=== PATIENT | female | born 1995 | race Caucasian/White ===

== ENCOUNTER 2017-10-11 20:07 | Emergency (ER) | payer OTHER ==
[2017-10-11] MEDS: DEXAMETHASONE SOD PHOS 20 MG/5 ML VIAL. IM ×2 (21:29)
[2017-10-11] MEDS: FAMOTIDINE 20 MG TABLET. PO ×2 (21:29)
[2017-10-11] MEDS: hydrOXYzine PAMOATE 25 MG CAPSULE PO ×2 (21:30)
== END 2017-10-11 21:47 | disposition home or self-care (01) ==
LOC: ER 20:07
DX: L25.9 Unspecified contact dermatitis, unspecified cause (principal); Z88.0 Allergy status to penicillin; Z88.1 Allergy status to other antibiotic agents
CPT/HCPCS: 96372; 99283-25; J1100

== ENCOUNTER 2019-12-23 17:23 | Emergency (ER) | payer OTHER ==
[~2019-12-23] VITALS: Ht 162.6 cm; Wt 65.0 kg
[~2019-12-23 17:23] MED LIST: FAMO20TA5 PO; HYDR25TA PO; METH4TAB2 PO; NAPR-683 PO
[2019-12-23] MEDS: IV NORMAL SALINE 1000ML BAG 1,000 ML IV ONE (18:00)
--- NOTE | 2019-12-23 18:05 | PHYS DOC ---
Past Medical History Past Medical History: No Pertinent History Past Surgical History: Tonsillectomy Additional Past Surgical Histo: mass removed next to bladder, Smoking Status: Never Smoker Alcohol Use: None Drug Use: None Adult General Chief Complaint Chief Complaint: FEVER HPI HPI Patient is a 24 year old female who presents with fever that is been ongoing since yesterday with cough, fever, body aches, and fatigue. Denies loss of appetite, denies runny nose, denies diarrhea. The patient states that she is also having left lower quad abdominal pain after she took a medical pill last Saturday. The patient reports her fevers been 102.8. Rates her pain 6 out of 10 in severity and sharp. Heart rate on arrival to the ER was 131. Complete ROS were reviewed and found to be within normal limits, except as documented in the HPI Current Medications Current Medications Current Medications Medications (Trade) Dose Ordered Sig/Cameron Start Time Stop Time Status Last Admin Dose Admin Acetaminophen (Tylenol) 1,000 mg 1X ONCE 12/23/19 21:45 12/23/19 21:46 Ibuprofen (Motrin) 200 mg STK-MED ONCE 12/23/19 21:34 12/23/19 21:34 DC Ondansetron HCl (Zofran) 4 mg STK-MED ONCE 12/23/19 21:34 12/23/19 21:34 DC Sodium Chloride 1,000 ml @ 1,000 mls/hr 1X ONCE 12/23/19 18:00 12/23/19 19:01 DC 12/23/19 18:00 1,000 MLS/HR Allergies Allergies Allergies Coded Allergies Type Severity Reaction Last Updated Verified Penicillins Allergy Intermediate hives 10/11/17 Yes amoxicillin Allergy Intermediate hives 10/11/17 Yes Physical Exam Physical Exam Constitutional: Well developed, well nourished, no acute distress, non-toxic appearance. [] HENT: Normocephalic, atraumatic, bilateral external ears normal, oropharynx moist, no oral exudates, nose normal. [] Abdomen: soft, LLQ abdominal pain. Neurologic: Alert and oriented X 3, normal motor function, normal sensory function, no focal deficits noted. [] Psychologic: Affect normal, judgement normal, mood normal. [] Current Patient Data Vital Signs Vital Signs Date Time Temp Pulse Resp B/P (MAP) Pulse Ox O2 Delivery O2 Flow Rate FiO2 12/23/19 21:20 102.4 104 20 117/58 (77) 98 102.4 12/23/19 18:32 Room Air Lab Values Laboratory Tests Test 12/23/19 18:00 12/23/19 18:19 12/23/19 19:00 Urine Collection Type Unknown Urine Color Yellow Urine Clarity Clear Urine pH 7.0 (<5.0-8.0) Urine Specific [place] 1.020 (1.000-1.030) Urine Protein Negative mg/dL (NEG-TRACE) Urine Glucose (UA) Negative mg/dL (NEG) Urine Ketones (Stick) Negative mg/dL (NEG) Urine Blood Moderate (NEG) Urine Nitrite Negative (NEG) Urine Bilirubin Negative (NEG) Urine Urobilinogen Dipstick 0.2 mg/dL (0.2 mg/dL) Urine Leukocyte Esterase Negative (NEG) Urine RBC 11-20 /HPF (0-2) Urine WBC Rare /HPF (0-4) Urine Squamous Epithelial Cells Mod /LPF Urine Bacteria Few /HPF (0-FEW) Urine Mucus Marked /LPF POC Urine HCG, Qualitative Hcg positive (Negative) White Blood Count 10.2 x10^3/uL (4.0-11.0) Red Blood Count 3.95 x10^6/uL (3.50-5.40) Hemoglobin 12.0 g/dL (12.0-15.5) Hematocrit 35.0 % (36.0-47.0) L Mean Corpuscular Volume 89 fL (79-100) Mean Corpuscular Hemoglobin 30 pg (25-35) Mean Corpuscular Hemoglobin Concent 34 g/dL (31-37) Red Cell Distribution Width 14.1 % (11.5-14.5) Platelet Count 180 x10^3/uL (140-400) Neutrophils (%) (Auto) 86 % (31-73) H Lymphocytes (%) (Auto) 7 % (24-48) L Monocytes (%) (Auto) 7 % (0-9) Eosinophils (%) (Auto) 0 % (0-3) Basophils (%) (Auto) 0 % (0-3) Neutrophils # (Auto) 8.7 x10^3/uL (1.8-7.7) H Lymphocytes # (Auto) 0.7 x10^3/uL (1.0-4.8) L Monocytes # (Auto) 0.7 x10^3/uL (0.0-1.1) Eosinophils # (Auto) 0.0 x10^3/uL (0.0-0.7) Basophils # (Auto) 0.0 x10^3/uL (0.0-0.2) Segmented Neutrophils % 81 % (35-66) H Band Neutrophils % 3 % (0-9) Lymphocytes % 11 % (24-48) L Monocytes % 5 % (0-10) Platelet Estimate Adequate (ADEQUATE) Maternal Serum HCG Beta Subunit 6123 mIU/mL (0-5) H Sodium Level 136 mmol/L (136-145) Potassium Level 3.6 mmol/L (3.5-5.1) Chloride Level 101 mmol/L (98-107) Carbon Dioxide Level 27 mmol/L (21-32) Anion Gap 8 (6-14) Blood Urea Nitrogen 8 mg/dL (7-20) Creatinine 0.8 mg/dL (0.6-1.0) Estimated GFR (Cockcroft-Gault) 88.9 BUN/Creatinine Ratio 10 (6-20) Glucose Level 87 mg/dL (70-99) Lactic Acid Level 0.7 mmol/L (0.4-2.0) Calcium Level 8.4 mg/dL (8.5-10.1) L Total Bilirubin 0.5 mg/dL (0.2-1.0) Aspartate Amino Transferase (AST) 13 U/L (15-37) L Alanine Aminotransferase (ALT) 13 U/L (14-59) L Alkaline Phosphatase 54 U/L (46-116) Total Protein 6.8 g/dL (6.4-8.2) Albumin 3.7 g/dL (3.4-5.0) Albumin/Globulin Ratio 1.2 (1.0-1.7) Laboratory Tests 12/23/19 19:00 Laboratory Tests 12/23/19 19:00 EKG EKG [] Radiology/Procedures Radiology/Procedures [][facility] [address] [place] [address] IMAGING REPORT Signed PATIENT: MONO EMMANUEL Jesica ACCOUNT: [id number] : 1995 LOCATION: ER AGE: 24 SEX: F EXAM STATUS: REG ER ORD. PHYSICIAN: JESUS WHITESIDE APRN REASON: cough PROCEDURE: PORTABLE CHEST 1V Single view chest dated 12/23/2019: No comparison available. Clinical Indication: Cough. Findings: Single upright portable exam of the chest was performed. Heart size and mediastinal contours are within normal limits given technique. The lungs are clear without evidence of focal consolidation. Vascular interstitium is within normal limits. Impression:: No acute radiographic abnormality. Electronically signed by: Jesus Brito MD (12/23/2019 6:39 PM) [id number] DICTATED and SIGNED BY: JESUS BRITO MD DATE: 12/23/19 183 Course & Med Decision Making Course & Med Decision Making Pertinent Labs and Imaging studies reviewed. (See chart for details) We will get chest x-ray, labs, lactic acid, ultrasound. Patient is a fever after a medical pill so I am concerned that she might have retained products. The patient also has a fever and cough with no exhalation for the cough and I am concerned that she could also have coronavirus. Heart rate has improved down to 98. Ultrasound shows retained products. I discussed the case with Dr. Davis. Dr. Davis suggest put on doxycycline and giving her pain medicine. She was then see if she passes overnight and have her call her office in the morning. If the product do not come out she will then perform a D&C. Discussed this plan with the patient who is agreeable to the plan. Dragon Disclaimer Dragon Disclaimer This electronic medical record was generated, in whole or in part, using a voice recognition dictation system. Departure Departure Impression: Primary Impression: Retained products of conception following Disposition: HOME, SELF-CARE Condition: STABLE Referrals: MARY IGNACIO MD (PCP) BENJAMIN EUBANKS MD Additional Instructions: Thank you for visiting [facility]. We appreciate you trusting us with your care. If any additional problems come up don't hesitate to return to visit us. Please follow up with your primary care provider so they can plan additional care if needed and know about the problem that you had. If symptoms worsen come back to the Emergency Department. Any concerning symptoms that start such as chest pain, shortness of air, weakness or numbness on one side of the body, running high fevers or any other concerning symptoms return to the ER. Please follow-up with Dr. Andre per contact information on the discharge instructions as we discussed. Scripts Hydrocodone/Apap 5-325 (NORCO 5-325 TABLET) 1 Each Tablet 1 TAB PO PRN Q6HRS PRN for PAIN for 3 Days, #10 TAB 0 Refills Prov: JESUS WHITESIDE APRN 12/23/19 Doxycycline Hyclate (DOXYCYCLINE HYCLATE) 100 Mg Capsule 1 CAP PO BID for 7 Days, #14 CAP Prov: JESUS WHITESIDE APRN 12/23/19 JSEUS WHITESIDE APRN Dec 23, 2019 18:05
[2019-12-23 18:25] LABS: BILIRUBIN,URINE NEGATIVE (NEG); CLARITY,URINE CLEAR; COLOR,URINE YELLOW; NITRITE,URINE NEGATIVE (NEG); PROTEIN,URINE NEGATIVE (NEG-TRACE); UROBILINOGEN,URINE 0.2 mg/dL (0.2 mg/dL)
[2019-12-23 18:33] LABS: BACTERIA,URINE FEW /HPF (0-FEW); SQUAMOUS EPITHELIAL CELL,UR MOD /LPF; WBC,URINE RARE /HPF (0-4)
--- NOTE | 2019-12-23 18:42 | RAD ---
Single view chest dated 12/23/2019: No comparison available. Clinical Indication: Cough. Findings: Single upright portable exam of the chest was performed. Heart size and mediastinal contours are within normal limits given technique. The lungs are clear without evidence of focal consolidation. Vascular interstitium is within normal limits. Impression:: No acute radiographic abnormality. Electronically signed by: Jesus Brito MD (12/23/2019 6:39 PM) [id number]
[2019-12-23 19:15] LABS: BASO % 0 % (0-3); EOS % 0 % (0-3); LYMPH # 0.7 x10^3/uL (1.0-4.8); LYMPH % 7 % (24-48); MEAN CORPUSCULAR HEMOGLOBIN 30 pg (25-35); MEAN CORPUSCULAR HGB CONC 34 g/dL (31-37); MEAN CORPUSCULAR VOLUME 89 fL (79-100); MONO # 0.7 x10^3/uL (0.0-1.1); MONO % 7 % (0-9); NEUT # 8.7 x10^3/uL (1.8-7.7); NEUT % 86 % (31-73); PLATELET COUNT 180 x10^3/uL (140-400); RED BLOOD COUNT 3.95 x10^6/uL (3.50-5.40); RED CELL DISTRIBUTION WIDTH 14.1 % (11.5-14.5); WHITE BLOOD COUNT 10.2 x10^3/uL (4.0-11.0)
[2019-12-23 19:25] LABS: CALCIUM 8.4 mg/dL (8.5-10.1); CREATININE 0.8 mg/dL (0.6-1.0); GFR 88.9; POTASSIUM 3.6 mmol/L (3.5-5.1)
[2019-12-23 19:33] LABS: % BANDS 3 % (0-9); % LYMPHS 11 % (24-48); % MONOS 5 % (0-10); % SEGS 81 % (35-66); PLT ESTIMATE ADEQUATE (ADEQUATE)
[2019-12-23 19:38] LABS: ALBUMIN 3.7 g/dL (3.4-5.0); ALBUMIN/GLOBULIN RATIO 1.2 (1.0-1.7); TOTAL BILIRUBIN 0.5 mg/dL (0.2-1.0); TOTAL PROTEIN 6.8 g/dL (6.4-8.2)
--- NOTE | 2019-12-23 20:57 | RAD ---
Pelvic ultrasound to include transabdominal and transvaginal imaging December 23, 2019 CLINICAL HISTORY: Patient was recently post . Left pelvic pain and fever. Technique: Using the distended urinary bladder as a sonographic window, a real-time ultrasound examination of the pelvis was performed. Additionally in an attempt to better evaluate the uterus and adnexa, a transvaginal ultrasound study was performed. Multiple images were obtained. FINDINGS: The uterus is normal in size. It measures 9.2 x 6.4 x 5.3 cm in longitudinal, transverse, and AP dimensions. A 2.5 cm fibroid is seen involving the right anterior aspect of the uterine body. No gestational sac is seen within the endometrial canal of the uterus. The endometrial echo complex is slightly thickened and heterogeneous measuring 1.4 cm in thickness. Increased color flow to this region is noted. Both ovaries are within normal limits in size and echogenicity. The right ovary measures 3.2 x 3.0 x 1.6 cm in size. Left ovary measures 4.0 x 2.9 x 2.3 cm in size. A small amount of free fluid is seen within the pelvis. IMPRESSION: 1. 2.5 cm uterine fibroid. 2. The endometrial echo complex is slightly thickened and heterogeneous. Increased color flow to this region is noted. Retained products are not excluded. 3. Small amount of free fluid is seen within the pelvis. Electronically signed by: Eric Vides MD (12/23/2019 8:54 PM) [id number]
[2019-12-23] MEDS ORDERED: IBUPROFEN 200 MG TABLET. PO ONE (21:34)
[2019-12-23] MEDS ORDERED: ONDANSETRON PF 4 MG/2 ML VIAL. ONE (21:34)
[2019-12-23] MEDS ORDERED: HYDR-3164 PO (21:41)
[2019-12-23] MEDS ORDERED: DOXY100C2 PO (21:41)
[2019-12-23] MEDS: ONDANSETRON PF 4 MG/2 ML VIAL. IVP ONE (21:44)
[2019-12-23] MEDS: ACETAMINOPHEN 500 MG TABLET PO ONE (21:44)
[2019-12-23] MEDS: IBUPROFEN 400 MG TABLET. PO ONE (21:45)
[2019-12-23 22:13] VITALS: BP 122/62
== END 2019-12-23 22:17 | disposition home or self-care (01) ==
LOC: ER 17:23
DX: O03.4 Incomplete spontaneous abortion without complication (principal); R05 Cough; R50.9 Fever, unspecified; Z88.0 Allergy status to penicillin; Z88.1 Allergy status to other antibiotic agents
CPT/HCPCS: 36415; 71045; 76830; 76856; 80053; 81001; 81025; 83605; 84702; 85007; 85025; 96374; 99285; J2405; J7030

== ENCOUNTER 2020-06-24 12:42 | Inpatient (IN) | payer OTHER ==
[~2020-06-24] VITALS: Ht 162.6 cm; Wt 69.3 kg
[~2020-06-24 12:42] MED LIST changes: +DOXY100C2 PO; +HYDR-3164 PO
[2020-06-24] MEDS ORDERED: IV NORMAL SALINE 1000ML BAG 1,000 ML IV SCH (13:04)
--- NOTE | 2020-06-24 13:09 | PHYS DOC ---
Past Medical History Past Medical History: No Pertinent History Past Surgical History: Tonsillectomy Additional Past Surgical Histo: mass removed next to bladder, Smoking Status: Never Smoker Alcohol Use: None Drug Use: None General Adult EDM: Chief Complaint: ABDOMINAL PAIN HPI: HPI: Patient is a 25 year old female who presents with 2 hours of dull umbilical pain that radiates to the right lower quadrant. She states that she has had nausea and vomiting also. She has a history of a mass removed the side of her bladder and a D&C. She rates her pain a 6 out of 10. She states she has not taken any medications that she takes no medications daily. Patient denies back pain, dysuria, fever, diarrhea, constipation, headache, dizziness, sexually- transmitted diseases, numbness or tingling, chest pain, shortness of air, cough. Review of Systems: Review of Systems: Constitutional: Denies fever or chills. [] Eyes: Denies change in visual acuity. [] HENT: Denies nasal congestion or sore throat. [] Respiratory: Denies cough or shortness of breath. [] Cardiovascular: Denies chest pain or edema. [] GI: + abdominal pain, +nausea, +vomiting, denies bloody stools or diarrhea. [] : Denies dysuria. [] Musculoskeletal: Denies back pain or joint pain. [] Integument: Denies rash. [] Neurologic: Denies headache, focal weakness or sensory changes. [] Endocrine: Denies polyuria or polydipsia. [] Lymphatic: Denies swollen glands. [] Psychiatric: Denies depression or anxiety. [] Heart Score: Risk Factors: Risk Factors: DM, Current or recent (<one month) smoker, HTN, HLP, family hist ory of CAD, obesity. Risk Scores: Score 0 - 3: 2.5% MACE over next 6 weeks - Discharge Home Score 4 - 6: 20.3% MACE over next 6 weeks - Admit for Clinical Observation Score 7 - 10: 72.7% MACE over next 6 weeks - Early Invasive Strategies Allergies: Allergies: Allergies Coded Allergies Type Severity Reaction Last Updated Verified Penicillins Allergy Intermediate hives 10/11/17 Yes amoxicillin Allergy Intermediate hives 10/11/17 Yes Physical Exam: PE: Constitutional: Well developed, well nourished, no acute distress, non-toxic appearance. [] HENT: Normocephalic, atraumatic, bilateral external ears normal, oropharynx moist, no oral exudates, nose normal. [] Eyes: PERRLA, EOMI, conjunctiva normal, no discharge. [] Neck: Normal range of motion, no tenderness, supple, no stridor. [] Cardiovascular:Heart rate regular rhythm, no murmur [] Lungs & Thorax: Bilateral breath sounds clear to auscultation [] Abdomen: Bowel sounds normal, soft, umbilical and right lower quadrant tenderness, no masses, no pulsatile masses. [] Skin: Warm, dry, no erythema, no rash. [] Back: No tenderness, no CVA tenderness. [] Extremities: No tenderness, no cyanosis, no clubbing, ROM intact, no edema. [] Neurologic: Alert and oriented X 3, normal motor function, normal sensory function, no focal deficits noted. [] Psychologic: Affect normal, judgement normal, mood normal. [] EKG: EKG: [] Radiology/Procedures: Radiology/Procedures: [] Impression: [facility] [address] [place] [address] IMAGING REPORT Signed PATIENT: MONO EMMANUEL ACCOUNT: [id number] : 1995 LOCATION: ER AGE: 25 SEX: F EXAM STATUS: REG ER ORD. PHYSICIAN: DEANN MIRANDA APRN REASON: RLQ pain PROCEDURE: CT ABD PELV W/ IV CONTRST ONLY EXAM: Abdomen and pelvis CT with intravenous contrast. HISTORY: Right lower quadrant pain. TECHNIQUE: Computed tomographic images of the abdomen and pelvis were obtained following the administration of intravenous contrast. Multiplanar reformatting was performed. *One or more of the following individualized dose reduction techniques were utilized for this examination: 1. Automated exposure control. 2. Adjustment of the mA and/or kV according to patient size. 3. Use of iterative reconstruction technique. COMPARISON: None. FINDINGS: Evaluation of the lower thorax is unremarkable. No hepatic lesion is seen. The gallbladder, pancreas, stomach, adrenal glands and kidneys are unremarkable. The spleen is upper normal in size. There is mild enlargement of the appendix, measuring 8 mm in caliber. There is trace periappendiceal stranding. There is no bowel obstruction. There is no free air. There are 2 radiodense ingested structures within the cecum, the appearance of which favors pill capsules. The aorta is normal in caliber. There are nonspecific mesenteric lymph nodes. There are small calcifications along the anterior bladder wall of the urinary bladder. No bladder wall thickening is seen. The uterus is unremarkable. There are bilateral ovarian follicles and there is a small amount of pelvic free fluid. There is a small uterine fibroid. There is no suspicious osseous lesion. There is a transitional lumbosacral segment, a normal variant. IMPRESSION: 1. Mild enlargement of the appendix to a caliber of 8 mm and slight periappendiceal fatty stranding. Given a history of right lower quadrant pain, the possibility of early appendicitis is not excluded. Correlate for leukocytosis and abnormal physical exam findings. 2. Small calcifications along the anterior urinary bladder wall. These are nonspecific and are associated with lateral wall thickening. 3. Small amount of pelvic free fluid. This can be physiologic in a female patient of this age. There is also a small uterine fibroid, better characterized on a sonogram dated 12/23/2019. Electronically signed by: Niecy Mccormick MD (06/24/2020 2:15 PM) [id number] DICTATED and SIGNED BY: NIECY MCCORMICK MD DATE: 06/24/20 1415 Course & Med Decision Making: Course & Med Decision Making Pertinent Labs and Imaging studies reviewed. (See chart for details) See HPI. Ambulatory with a steady gait. Alert and oriented x4. Speaks in full complete sentences. Can pink warm and dry. Afebrile. Abdomen is soft but tender to epigastric and right lower quadrant. No rebound tenderness. No CVA tenderness. I have spoken to Dr Smith who states not to start antibiotics and he will reevaluate her and get another cbc in the morning. I have spoken to Dr Jimenez for admission. [] Melanie Disclaimer: Melanie Disclaimer: This electronic medical record was generated, in whole or in part, using a voice recognition dictation system. Departure Departure Impression: Primary Impression: Acute appendicitis Qualified Codes: K35.80 - Unspecified acute appendicitis Disposition: ADMITTED INPATIENT Admitting Physician: HIMS Condition: STABLE Referrals: MARY IGNACIO MD (PCP) DEANN MIRANDA [employer]IVATE WE[employer] ADVISOR Jun 24, 2020 13:09
[2020-06-24] MEDS ORDERED: ONDANSETRON PF 4 MG/2 ML VIAL. IVP ONE (13:15)
[2020-06-24] MEDS ORDERED: fentaNYL PF VIAL 100 MCG/2 ML VIAL IVP ONE (13:15)
[2020-06-24 13:17] LABS: BILIRUBIN,URINE NEGATIVE (NEG); CLARITY,URINE CLEAR; COLOR,URINE YELLOW; NITRITE,URINE NEGATIVE (NEG); PH,URINE 6.5 (<5.0-8.0); PROTEIN,URINE NEGATIVE (NEG-TRACE); UROBILINOGEN,URINE 0.2 mg/dL (0.2 mg/dL)
[2020-06-24 13:24] LABS: BARBITURATES NEG (NEG); BENZODIAZEPINES NEG (NEG); CANNABINOIDS NEG (NEG); COCAINE NEG (NEG); METHADONE NEG (NEG); OPIATES NEG (NEG); PHENCYCLIDINE NEG (NEG)
[2020-06-24 13:30] LABS: AMPHETAMINE/METHAMPHETAMINE NEG (NEG)
[2020-06-24 13:31] LABS: BASO % 1 % (0-3); EOS % 1 % (0-3); HEMATOCRIT 36.6 % (36.0-47.0); HEMOGLOBIN 12.3 g/dL (12.0-15.5); LYMPH # 0.9 x10^3/uL (1.0-4.8); LYMPH % 31 % (24-48); MEAN CORPUSCULAR HEMOGLOBIN 28 pg (25-35); MEAN CORPUSCULAR HGB CONC 34 g/dL (31-37); MEAN CORPUSCULAR VOLUME 84 fL (79-100); MONO # 0.4 x10^3/uL (0.0-1.1); MONO % 13 % (0-9); NEUT # 1.6 x10^3/uL (1.8-7.7); NEUT % 54 % (31-73); PLATELET COUNT 196 x10^3/uL (140-400); RED BLOOD COUNT 4.36 x10^6/uL (3.50-5.40); RED CELL DISTRIBUTION WIDTH 17.3 % (11.5-14.5); WHITE BLOOD COUNT 2.9 x10^3/uL (4.0-11.0)
[2020-06-24 13:32] LABS: RBC,URINE RARE /HPF (0-2); SQUAMOUS EPITHELIAL CELL,UR FEW /LPF; WBC,URINE OCC /HPF (0-4)
[2020-06-24 13:33] LABS: BACTERIA,URINE MODERATE /HPF (0-FEW)
[2020-06-24 13:41] LABS: CALCIUM 8.8 mg/dL (8.5-10.1); CREATININE 0.8 mg/dL (0.6-1.0); GFR 88.1; POTASSIUM 3.8 mmol/L (3.5-5.1)
[2020-06-24 13:45] LABS: PROTHROMBIN TIME PATIENT 13.8 SEC (11.7-14.0)
[2020-06-24 13:46] LABS: ALBUMIN 3.9 g/dL (3.4-5.0); ALBUMIN/GLOBULIN RATIO 1.3 (1.0-1.7); TOTAL BILIRUBIN 0.3 mg/dL (0.2-1.0)
[2020-06-24] MEDS ORDERED: IOHEXOL 300 MG/ML 100ML VIAL. IV ONE (14:00)
[2020-06-24] MEDS ORDERED: CONTRAST GIVEN. MC PRN (14:00)
--- NOTE | 2020-06-24 14:18 | RAD ---
EXAM: Abdomen and pelvis CT with intravenous contrast. HISTORY: Right lower quadrant pain. TECHNIQUE: Computed tomographic images of the abdomen and pelvis were obtained following the administration of intravenous contrast. Multiplanar reformatting was performed. *One or more of the following individualized dose reduction techniques were utilized for this examination: 1. Automated exposure control. 2. Adjustment of the mA and/or kV according to patient size. 3. Use of iterative reconstruction technique. COMPARISON: None. FINDINGS: Evaluation of the lower thorax is unremarkable. No hepatic lesion is seen. The gallbladder, pancreas, stomach, adrenal glands and kidneys are unremarkable. The spleen is upper normal in size. There is mild enlargement of the appendix, measuring 8 mm in caliber. There is trace periappendiceal stranding. There is no bowel obstruction. There is no free air. There are 2 radiodense ingested structures within the cecum, the appearance of which favors pill capsules. The aorta is normal in caliber. There are nonspecific mesenteric lymph nodes. There are small calcifications along the anterior bladder wall of the urinary bladder. No bladder wall thickening is seen. The uterus is unremarkable. There are bilateral ovarian follicles and there is a small amount of pelvic free fluid. There is a small uterine fibroid. There is no suspicious osseous lesion. There is a transitional lumbosacral segment, a normal variant. IMPRESSION: 1. Mild enlargement of the appendix to a caliber of 8 mm and slight periappendiceal fatty stranding. Given a history of right lower quadrant pain, the possibility of early appendicitis is not excluded. Correlate for leukocytosis and abnormal physical exam findings. 2. Small calcifications along the anterior urinary bladder wall. These are nonspecific and are associated with lateral wall thickening. 3. Small amount of pelvic free fluid. This can be physiologic in a female patient of this age. There is also a small uterine fibroid, better characterized on a sonogram dated 12/23/2019. Electronically signed by: Niecy Rowan MD (06/24/2020 2:15 PM) [id number]
[2020-06-24] MEDS ORDERED: ONDANSETRON PF 4 MG/2 ML VIAL. IV PRN (15:00)
[2020-06-24] MEDS ORDERED: fentaNYL PF VIAL 100 MCG/2 ML VIAL IV PRN (15:00)
[2020-06-24] MEDS ORDERED: MORPHINE SULFATE 2 MG/ML VIAL. IV PRN (15:30)
[2020-06-24] MEDS ORDERED: IBUPROFEN 400 MG TABLET. PO PRN (15:30)
[2020-06-24] MEDS ORDERED: ZOLPIDEM 5 MG TABLET. PO PRN (15:30)
[2020-06-24] MEDS ORDERED: ACETAMINOPHEN 325 MG TABLET. PO PRN (15:30)
--- NOTE | 2020-06-24 15:34 | PDOC1 ---
History and Physical Date of Admission Date of Admission DATE: 06/24/20 TIME: 15:28 Identification/Chief Complaint Chief Complaint Abdominal pain Source Source: Patient History of Present Illness History of Present Illness Patient is a 25-year-old female with no significant past medical history who presents to ER with acute periumbilical abdominal pain that started the date of admission. She reports associated vomiting x1. At time of evaluation she currently denies any nausea, and pain is improved with medication. ER physician has been in contact with general surgery, who did not recommend any antibiotics at this time. General surgery to reevaluate tomorrow for possible surgery. Past Medical History Past Medical History GERD Past Surgical History Past Surgical History Tonsillectomy, bladder surgery Family History Family History CAD Social History Smoke: No ALCOHOL: occassional Drugs: None Current Problem List Problem List Problems Medical Problems: (1) Acute appendicitis Status: Acute Current Medications Current Medications Current Medications Sodium Chloride 1,000 ml @ 1,000 mls/hr Q1H IV Last administered on 06/24/20at 13:34; Start 06/24/20 at 13:04; Stop 06/24/20 at 14:03; Status DC Fentanyl Citrate (Fentanyl 2ml Vial) 50 mcg 1X ONCE IVP Last administered on 06/24/20at 13:33; Start 06/24/20 at 13:15; Stop 06/24/20 at 13:16; Status DC Ondansetron HCl (Zofran) 4 mg 1X ONCE IVP Last administered on 06/24/20at 13:32; Start 06/24/20 at 13:15; Stop 06/24/20 at 13:16; Status DC Iohexol (Omnipaque 300 Mg/ml) 75 ml 1X ONCE IV Last administered on 06/24/20at 13:59; Start 06/24/20 at 14:00; Stop 06/24/20 at 14:01; Status DC Info (CONTRAST GIVEN -- Rx MONITORING) 1 each PRN DAILY PRN MC SEE COMMENTS; Start 06/24/20 at 14:00; Stop 06/26/20 at 13:59 Ondansetron HCl (Zofran) 4 mg PRN Q8HRS PRN IV NAUSEA/VOMITING; Start 06/24/20 at 15:00; Stop 06/25/20 at 14:59 Fentanyl Citrate (Fentanyl 2ml Vial) 50 mcg PRN Q1HR PRN IV PAIN; Start 06/24/20 at 15:00; Stop 06/25/20 at 14:59 Sodium Chloride 1,000 ml @ 125 mls/hr Q8H IV ; Start 06/24/20 at 14:51; Stop 06/25/20 at 14:50 Zolpidem Tartrate (Ambien) 5 mg PRN QHS PRN PO INSOMNIA, MAY REPEAT IN 1HR; Start 06/24/20 at 15:30; Status UNV Morphine Sulfate (Morphine Sulfate) 2 mg PRN Q1HR PRN IV PAIN; Start 06/24/20 at 15:30; Status UNV Acetaminophen (Tylenol) 650 mg PRN Q6HRS PRN PO Headaches, Temp > 101.5F; Start 06/24/20 at 15:30; Status UNV Ibuprofen (Motrin) 400 mg PRN Q6HRS PRN PO MILD PAIN 1-3; Start 06/24/20 at 15:30; Status UNV Active Scripts Active [place] 5-325 Tablet (Acetaminophen/Hydrocodone Bitart) 1 Each Tablet 1 Tab PO PRN Q6HRS PRN 3 Days Doxycycline Hyclate 100 Mg Capsule 1 Cap PO BID 7 Days Naprosyn (Naproxen) 500 Mg Tablet 1 Tab PO BID PRN Famotidine 20 Mg Tablet 20 Mg PO DAILY Medrol (Methylprednisolone) 4 Mg Tab.ds.pk 1 Pkg PO UD Hydroxyzine Hcl 25 Mg Tablet 1 Tab PO TID Allergies Allergies: Coded Allergies: Penicillins (Verified Allergy, Severe, hives, sob, 06/24/20) amoxicillin (Verified Allergy, Severe, hives, sob, 06/24/20) ROS Review of System GENERAL: No history of weight change, weakness or fevers. SKIN: No bruising, hair changes or rashes. EYES: No blurred, double or loss of vision. NOSE AND THROAT: No history of nosebleeds, hoarseness or sore throat. HEART: Denies chest pain, denies palpitations. LUNGS: Denies cough, hemoptysis, wheezing or shortness of breath. GASTROINTESTINAL: Abdominal pain, nausea, vomiting. GENITOURINARY: Denies dysuria, frequency, urgency, hematuria. NEUROLOGIC: Denies history of numbness, tingling, tremor or weakness. PSYCHIATRIC: Denies anxiety, denies depression. ENDOCRINE: No history of heat or cold intolerance, polyuria or polydipsia. EXTREMITIES: Denies muscle weakness, joint pain, pain on walking or stiffness. Physical Exam Physical Exam General: Alert, Oriented X3, Cooperative, No acute distress HEENT: PERRLA, EOMI Lungs: Clear to auscultation, Normal air movement Heart: RRR, no murmurs Cardiovascular: S1, S2 Abdomen: Right lower quadrant abdominal pain Extremities: No clubbing, No cyanosis Skin: No rashes, No significant lesion Neuro: Normal speech, Normal tone, Sensation intact Psych/Mental Status: Mental status NL, Mood NL Vitals Vitals Vital Signs Date Time Temp Pulse Resp B/P (MAP) Pulse Ox O2 Delivery O2 Flow Rate FiO2 06/24/20 13:33 18 06/24/20 13:05 98.5 65 132/73 (92) 100 Room Air 98.5 Labs Labs Laboratory Tests Test 06/24/20 13:00 06/24/20 13:06 06/24/20 13:20 Urine Collection Type Unknown Urine Color Yellow Urine Clarity Clear Urine pH 6.5 (<5.0-8.0) Urine Specific [place] 1.020 (1.000-1.030) Urine Protein Negative mg/dL (NEG-TRACE) Urine Glucose (UA) Negative mg/dL (NEG) Urine Ketones (Stick) Trace mg/dL (NEG) Urine Blood Moderate (NEG) Urine Nitrite Negative (NEG) Urine Bilirubin Negative (NEG) Urine Urobilinogen Dipstick 0.2 mg/dL (0.2 mg/dL) Urine Leukocyte Esterase Trace (NEG) Urine RBC Rare /HPF (0-2) Urine WBC Occ /HPF (0-4) Urine Squamous Epithelial Cells Few /LPF Urine Bacteria Moderate /HPF (0-FEW) Urine Mucus Mod /LPF Urine Opiates Screen Neg (NEG) Urine Methadone Screen Neg (NEG) Urine Barbiturates Neg (NEG) Urine Phencyclidine Screen Neg (NEG) Urine Amphetamine/Methamphetamine Neg (NEG) Urine Benzodiazepines Screen Neg (NEG) Urine Cocaine Screen Neg (NEG) Urine Cannabinoids Screen Neg (NEG) Urine Ethyl Alcohol Neg (NEG) Bedside Urine HCG, Qualitative Hcg negative (Negative) White Blood Count 2.9 x10^3/uL (4.0-11.0) Red Blood Count 4.36 x10^6/uL (3.50-5.40) Hemoglobin 12.3 g/dL (12.0-15.5) Hematocrit 36.6 % (36.0-47.0) Mean Corpuscular Volume 84 fL (79-100) Mean Corpuscular Hemoglobin 28 pg (25-35) Mean Corpuscular Hemoglobin Concent 34 g/dL (31-37) Red Cell Distribution Width 17.3 % (11.5-14.5) Platelet Count 196 x10^3/uL (140-400) Neutrophils (%) (Auto) 54 % (31-73) Lymphocytes (%) (Auto) 31 % (24-48) Monocytes (%) (Auto) 13 % (0-9) Eosinophils (%) (Auto) 1 % (0-3) Basophils (%) (Auto) 1 % (0-3) Neutrophils # (Auto) 1.6 x10^3/uL (1.8-7.7) Lymphocytes # (Auto) 0.9 x10^3/uL (1.0-4.8) Monocytes # (Auto) 0.4 x10^3/uL (0.0-1.1) Eosinophils # (Auto) 0.0 x10^3/uL (0.0-0.7) Basophils # (Auto) 0.0 x10^3/uL (0.0-0.2) Prothrombin Time 13.8 SEC (11.7-14.0) Prothromb Time International Ratio 1.1 (0.8-1.1) Sodium Level 137 mmol/L (136-145) Potassium Level 3.8 mmol/L (3.5-5.1) Chloride Level 104 mmol/L (98-107) Carbon Dioxide Level 29 mmol/L (21-32) Anion Gap 4 (6-14) Blood Urea Nitrogen 13 mg/dL (7-20) Creatinine 0.8 mg/dL (0.6-1.0) Estimated GFR (Cockcroft-Gault) 88.1 BUN/Creatinine Ratio 16 (6-20) Glucose Level 87 mg/dL (70-99) Calcium Level 8.8 mg/dL (8.5-10.1) Total Bilirubin 0.3 mg/dL (0.2-1.0) Aspartate Amino Transf (AST/SGOT) 16 U/L (15-37) Alanine Aminotransferase (ALT/SGPT) 14 U/L (14-59) Alkaline Phosphatase 47 U/L (46-116) Total Protein 7.0 g/dL (6.4-8.2) Albumin 3.9 g/dL (3.4-5.0) Albumin/Globulin Ratio 1.3 (1.0-1.7) Lipase 100 U/L (73-393) Laboratory Tests Test 06/24/20 13:00 06/24/20 13:06 06/24/20 13:20 Urine Collection Type Unknown Urine Color Yellow Urine Clarity Clear Urine pH 6.5 (<5.0-8.0) Urine Specific [place] 1.020 (1.000-1.030) Urine Protein Negative mg/dL (NEG-TRACE) Urine Glucose (UA) Negative mg/dL (NEG) Urine Ketones (Stick) Trace mg/dL (NEG) Urine Blood Moderate (NEG) Urine Nitrite Negative (NEG) Urine Bilirubin Negative (NEG) Urine Urobilinogen Dipstick 0.2 mg/dL (0.2 mg/dL) Urine Leukocyte Esterase Trace (NEG) Urine RBC Rare /HPF (0-2) Urine WBC Occ /HPF (0-4) Urine Squamous Epithelial Cells Few /LPF Urine Bacteria Moderate /HPF (0-FEW) Urine Mucus Mod /LPF Urine Opiates Screen Neg (NEG) Urine Methadone Screen Neg (NEG) Urine Barbiturates Neg (NEG) Urine Phencyclidine Screen Neg (NEG) Urine Amphetamine/Methamphetamine Neg (NEG) Urine Benzodiazepines Screen Neg (NEG) Urine Cocaine Screen Neg (NEG) Urine Cannabinoids Screen Neg (NEG) Urine Ethyl Alcohol Neg (NEG) Bedside Urine HCG, Qualitative Hcg negative (Negative) White Blood Count 2.9 x10^3/uL (4.0-11.0) Red Blood Count 4.36 x10^6/uL (3.50-5.40) Hemoglobin 12.3 g/dL (12.0-15.5) Hematocrit 36.6 % (36.0-47.0) Mean Corpuscular Volume 84 fL (79-100) Mean Corpuscular Hemoglobin 28 pg (25-35) Mean Corpuscular Hemoglobin Concent 34 g/dL (31-37) Red Cell Distribution Width 17.3 % (11.5-14.5) Platelet Count 196 x10^3/uL (140-400) Neutrophils (%) (Auto) 54 % (31-73) Lymphocytes (%) (Auto) 31 % (24-48) Monocytes (%) (Auto) 13 % (0-9) Eosinophils (%) (Auto) 1 % (0-3) Basophils (%) (Auto) 1 % (0-3) Neutrophils # (Auto) 1.6 x10^3/uL (1.8-7.7) Lymphocytes # (Auto) 0.9 x10^3/uL (1.0-4.8) Monocytes # (Auto) 0.4 x10^3/uL (0.0-1.1) Eosinophils # (Auto) 0.0 x10^3/uL (0.0-0.7) Basophils # (Auto) 0.0 x10^3/uL (0.0-0.2) Prothrombin Time 13.8 SEC (11.7-14.0) Prothromb Time International Ratio 1.1 (0.8-1.1) Sodium Level 137 mmol/L (136-145) Potassium Level 3.8 mmol/L (3.5-5.1) Chloride Level 104 mmol/L (98-107) Carbon Dioxide Level 29 mmol/L (21-32) Anion Gap 4 (6-14) Blood Urea Nitrogen 13 mg/dL (7-20) Creatinine 0.8 mg/dL (0.6-1.0) Estimated GFR (Cockcroft-Gault) 88.1 BUN/Creatinine Ratio 16 (6-20) Glucose Level 87 mg/dL (70-99) Calcium Level 8.8 mg/dL (8.5-10.1) Total Bilirubin 0.3 mg/dL (0.2-1.0) Aspartate Amino Transf (AST/SGOT) 16 U/L (15-37) Alanine Aminotransferase (ALT/SGPT) 14 U/L (14-59) Alkaline Phosphatase 47 U/L (46-116) Total Protein 7.0 g/dL (6.4-8.2) Albumin 3.9 g/dL (3.4-5.0) Albumin/Globulin Ratio 1.3 (1.0-1.7) Lipase 100 U/L (73-393) Images Images EXAM: Abdomen and pelvis CT with intravenous contrast. HISTORY: Right lower quadrant pain. TECHNIQUE: Computed tomographic images of the abdomen and pelvis were obtained following the administration of intravenous contrast. Multiplanar reformatting was performed. *One or more of the following individualized dose reduction techniques were utilized for this examination: 1. Automated exposure control. 2. Adjustment of the mA and/or kV according to patient size. 3. Use of iterative reconstruction technique. COMPARISON: None. FINDINGS: Evaluation of the lower thorax is unremarkable. No hepatic lesion is seen. The gallbladder, pancreas, stomach, adrenal glands and kidneys are unremarkable. The spleen is upper normal in size. There is mild enlargement of the appendix, measuring 8 mm in caliber. There is trace periappendiceal stranding. There is no bowel obstruction. There is no free air. There are 2 radiodense ingested structures within the cecum, the appearance of which favors pill capsules. The aorta is normal in caliber. There are nonspecific mesenteric lymph nodes. There are small calcifications along the anterior bladder wall of the urinary bladder. No bladder wall thickening is seen. The uterus is unremarkable. There are bilateral ovarian follicles and there is a small amount of pelvic free fluid. There is a small uterine fibroid. There is no suspicious osseous lesion. There is a transitional lumbosacral segment, a normal variant. IMPRESSION: 1. Mild enlargement of the appendix to a caliber of 8 mm and slight periappendiceal fatty stranding. Given a history of right lower quadrant pain, the possibility of early appendicitis is not excluded. Correlate for leukocytosis and abnormal physical exam findings. 2. Small calcifications along the anterior urinary bladder wall. These are nonspecific and are associated with lateral wall thickening. 3. Small amount of pelvic free fluid. This can be physiologic in a female patient of this age. There is also a small uterine fibroid, better characterized on a sonogram dated 12/23/2019. VTE Prophylaxis Ordered VTE Prophylaxis Devices: Yes VTE Pharmacological Prophylaxi: No Assessment/Plan Assessment/Plan Acute appendicitis Plan: Consulted general surgery. They will evaluate the patient for surgery tomorrow. Patient is requesting food at this time, regular diet. N.p.o. after midnight for anticipated laparoscopic appendectomy. Pain management with morphine. Zofran PRN. FEN - regular diet PPX - SCDs FULL CODE Dispo - inpatient for above Justifications for Admission Other Justification Appendicitis CLAIR SHAY MD Jun 24, 2020 15:34
[2020-06-24 16:00] VITALS: BP 114/41
--- NOTE | 2020-06-24 17:26 | PDOC2 ---
CONSULT Date of Consult Date of Consult DATE: 06/24/20 TIME: 17:23 Reason for Consult Reason for Consult: RLQ abd pain Referring Physician Referring Physician: Dr. Jimenez Identification/Chief Complaint Chief Complaint RLQ abd pain Source Source: Chart review, Patient History of Present Illness Reason for Visit: 25 yo F with a few hx of RLQ abd pain. No previous episodes. No N/V. Pain has nearly completely resolved. Past Medical History Cardiovascular: No pertinent hx Past Surgical History Past Surgical History: Other (previous cyst removed off bladder) Family History Family History: No Significant Social History No ALCOHOL: occassional Drugs: None Current Problem List Problem List Problems Medical Problems: (1) Acute appendicitis Status: Acute Current Medications Current Medications Current Medications Sodium Chloride 1,000 ml @ 1,000 mls/hr Q1H IV Last administered on 06/24/20at 13:34; Start 06/24/20 at 13:04; Stop 06/24/20 at 14:03; Status DC Fentanyl Citrate (Fentanyl 2ml Vial) 50 mcg 1X ONCE IVP Last administered on 06/24/20at 13:33; Start 06/24/20 at 13:15; Stop 06/24/20 at 13:16; Status DC Ondansetron HCl (Zofran) 4 mg 1X ONCE IVP Last administered on 06/24/20at 13:32; Start 06/24/20 at 13:15; Stop 06/24/20 at 13:16; Status DC Iohexol (Omnipaque 300 Mg/ml) 75 ml 1X ONCE IV Last administered on 06/24/20at 13:59; Start 06/24/20 at 14:00; Stop 06/24/20 at 14:01; Status DC Info (CONTRAST GIVEN -- Rx MONITORING) 1 each PRN DAILY PRN MC SEE COMMENTS; Start 06/24/20 at 14:00; Stop 06/26/20 at 13:59 Ondansetron HCl (Zofran) 4 mg PRN Q8HRS PRN IV NAUSEA/VOMITING; Start 06/24/20 at 15:00; Stop 06/25/20 at 14:59 Fentanyl Citrate (Fentanyl 2ml Vial) 50 mcg PRN Q1HR PRN IV PAIN; Start 06/24/20 at 15:00; Stop 06/25/20 at 14:59 Sodium Chloride 1,000 ml @ 125 mls/hr Q8H IV ; Start 06/24/20 at 14:51; Stop 06/25/20 at 14:50 Zolpidem Tartrate (Ambien) 5 mg PRN QHS PRN PO INSOMNIA, MAY REPEAT IN 1HR; Start 06/24/20 at 15:30 Morphine Sulfate (Morphine Sulfate) 2 mg PRN Q1HR PRN IV PAIN; Start 06/24/20 at 15:30 Acetaminophen (Tylenol) 650 mg PRN Q6HRS PRN PO Headaches, Temp > 101.5F; Start 06/24/20 at 15:30 Ibuprofen (Motrin) 400 mg PRN Q6HRS PRN PO INFLAMMATION; Start 06/24/20 at 15:30 Active Scripts Active [place] 5-325 Tablet (Acetaminophen/Hydrocodone Bitart) 1 Each Tablet 1 Tab PO PRN Q6HRS PRN 3 Days Doxycycline Hyclate 100 Mg Capsule 1 Cap PO BID 7 Days Naprosyn (Naproxen) 500 Mg Tablet 1 Tab PO BID PRN Famotidine 20 Mg Tablet 20 Mg PO DAILY Medrol (Methylprednisolone) 4 Mg Tab.ds.pk 1 Pkg PO UD Hydroxyzine Hcl 25 Mg Tablet 1 Tab PO TID Allergies Allergies: Coded Allergies: Penicillins (Verified Allergy, Severe, hives, sob, 06/24/20) amoxicillin (Verified Allergy, Severe, hives, sob, 06/24/20) ROS Gastrointestinal: Yes Abdominal Pain Physical Exam General: Alert, Oriented X3, Cooperative, No acute distress HEENT: Atraumatic Lungs: Normal air movement Abdomen: Soft, Other (min TTP RLQ) Extremities: No clubbing, No cyanosis Skin: No rashes, No breakdown Neuro: Normal speech, Sensation intact Psych/Mental Status: Mental status NL, Mood NL Vitals VITALS Vital Signs Date Time Temp Pulse Resp B/P (MAP) Pulse Ox O2 Delivery O2 Flow Rate FiO2 06/24/20 16:00 98.6 56 19 114/41 (65) 100 Room Air 98.6 Labs Labs Laboratory Tests Test 06/24/20 13:00 06/24/20 13:06 06/24/20 13:20 06/24/20 15:50 Urine Collection Type Unknown Urine Color Yellow Urine Clarity Clear Urine pH 6.5 (<5.0-8.0) Urine Specific [place] 1.020 (1.000-1.030) Urine Protein Negative mg/dL (NEG-TRACE) Urine Glucose (UA) Negative mg/dL (NEG) Urine Ketones (Stick) Trace mg/dL (NEG) Urine Blood Moderate (NEG) Urine Nitrite Negative (NEG) Urine Bilirubin Negative (NEG) Urine Urobilinogen Dipstick 0.2 mg/dL (0.2 mg/dL) Urine Leukocyte Esterase Trace (NEG) Urine RBC Rare /HPF (0-2) Urine WBC Occ /HPF (0-4) Urine Squamous Epithelial Cells Few /LPF Urine Bacteria Moderate /HPF (0-FEW) Urine Mucus Mod /LPF Urine Opiates Screen Neg (NEG) Urine Methadone Screen Neg (NEG) Urine Barbiturates Neg (NEG) Urine Phencyclidine Screen Neg (NEG) Urine Amphetamine/Methamphetamine Neg (NEG) Urine Benzodiazepines Screen Neg (NEG) Urine Cocaine Screen Neg (NEG) Urine Cannabinoids Screen Neg (NEG) Urine Ethyl Alcohol Neg (NEG) Bedside Urine HCG, Qualitative Hcg negative (Negative) White Blood Count 2.9 x10^3/uL (4.0-11.0) Red Blood Count 4.36 x10^6/uL (3.50-5.40) Hemoglobin 12.3 g/dL (12.0-15.5) Hematocrit 36.6 % (36.0-47.0) Mean Corpuscular Volume 84 fL (79-100) Mean Corpuscular Hemoglobin 28 pg (25-35) Mean Corpuscular Hemoglobin Concent 34 g/dL (31-37) Red Cell Distribution Width 17.3 % (11.5-14.5) Platelet Count 196 x10^3/uL (140-400) Neutrophils (%) (Auto) 54 % (31-73) Lymphocytes (%) (Auto) 31 % (24-48) Monocytes (%) (Auto) 13 % (0-9) Eosinophils (%) (Auto) 1 % (0-3) Basophils (%) (Auto) 1 % (0-3) Neutrophils # (Auto) 1.6 x10^3/uL (1.8-7.7) Lymphocytes # (Auto) 0.9 x10^3/uL (1.0-4.8) Monocytes # (Auto) 0.4 x10^3/uL (0.0-1.1) Eosinophils # (Auto) 0.0 x10^3/uL (0.0-0.7) Basophils # (Auto) 0.0 x10^3/uL (0.0-0.2) Prothrombin Time 13.8 SEC (11.7-14.0) Prothromb Time International Ratio 1.1 (0.8-1.1) Sodium Level 137 mmol/L (136-145) Potassium Level 3.8 mmol/L (3.5-5.1) Chloride Level 104 mmol/L (98-107) Carbon Dioxide Level 29 mmol/L (21-32) Anion Gap 4 (6-14) Blood Urea Nitrogen 13 mg/dL (7-20) Creatinine 0.8 mg/dL (0.6-1.0) Estimated GFR (Cockcroft-Gault) 88.1 BUN/Creatinine Ratio 16 (6-20) Glucose Level 87 mg/dL (70-99) Calcium Level 8.8 mg/dL (8.5-10.1) Total Bilirubin 0.3 mg/dL (0.2-1.0) Aspartate Amino Transf (AST/SGOT) 16 U/L (15-37) Alanine Aminotransferase (ALT/SGPT) 14 U/L (14-59) Alkaline Phosphatase 47 U/L (46-116) Total Protein 7.0 g/dL (6.4-8.2) Albumin 3.9 g/dL (3.4-5.0) Albumin/Globulin Ratio 1.3 (1.0-1.7) Lipase 100 U/L (73-393) SARS-CoV-2 Antigen (Rapid) Negative (NEGATIVE) Laboratory Tests Test 06/24/20 13:00 06/24/20 13:06 06/24/20 13:20 06/24/20 15:50 Urine Collection Type Unknown Urine Color Yellow Urine Clarity Clear Urine pH 6.5 (<5.0-8.0) Urine Specific [place] 1.020 (1.000-1.030) Urine Protein Negative mg/dL (NEG-TRACE) Urine Glucose (UA) Negative mg/dL (NEG) Urine Ketones (Stick) Trace mg/dL (NEG) Urine Blood Moderate (NEG) Urine Nitrite Negative (NEG) Urine Bilirubin Negative (NEG) Urine Urobilinogen Dipstick 0.2 mg/dL (0.2 mg/dL) Urine Leukocyte Esterase Trace (NEG) Urine RBC Rare /HPF (0-2) Urine WBC Occ /HPF (0-4) Urine Squamous Epithelial Cells Few /LPF Urine Bacteria Moderate /HPF (0-FEW) Urine Mucus Mod /LPF Urine Opiates Screen Neg (NEG) Urine Methadone Screen Neg (NEG) Urine Barbiturates Neg (NEG) Urine Phencyclidine Screen Neg (NEG) Urine Amphetamine/Methamphetamine Neg (NEG) Urine Benzodiazepines Screen Neg (NEG) Urine Cocaine Screen Neg (NEG) Urine Cannabinoids Screen Neg (NEG) Urine Ethyl Alcohol Neg (NEG) Bedside Urine HCG, Qualitative Hcg negative (Negative) White Blood Count 2.9 x10^3/uL (4.0-11.0) Red Blood Count 4.36 x10^6/uL (3.50-5.40) Hemoglobin 12.3 g/dL (12.0-15.5) Hematocrit 36.6 % (36.0-47.0) Mean Corpuscular Volume 84 fL (79-100) Mean Corpuscular Hemoglobin 28 pg (25-35) Mean Corpuscular Hemoglobin Concent 34 g/dL (31-37) Red Cell Distribution Width 17.3 % (11.5-14.5) Platelet Count 196 x10^3/uL (140-400) Neutrophils (%) (Auto) 54 % (31-73) Lymphocytes (%) (Auto) 31 % (24-48) Monocytes (%) (Auto) 13 % (0-9) Eosinophils (%) (Auto) 1 % (0-3) Basophils (%) (Auto) 1 % (0-3) Neutrophils # (Auto) 1.6 x10^3/uL (1.8-7.7) Lymphocytes # (Auto) 0.9 x10^3/uL (1.0-4.8) Monocytes # (Auto) 0.4 x10^3/uL (0.0-1.1) Eosinophils # (Auto) 0.0 x10^3/uL (0.0-0.7) Basophils # (Auto) 0.0 x10^3/uL (0.0-0.2) Prothrombin Time 13.8 SEC (11.7-14.0) Prothromb Time International Ratio 1.1 (0.8-1.1) Sodium Level 137 mmol/L (136-145) Potassium Level 3.8 mmol/L (3.5-5.1) Chloride Level 104 mmol/L (98-107) Carbon Dioxide Level 29 mmol/L (21-32) Anion Gap 4 (6-14) Blood Urea Nitrogen 13 mg/dL (7-20) Creatinine 0.8 mg/dL (0.6-1.0) Estimated GFR (Cockcroft-Gault) 88.1 BUN/Creatinine Ratio 16 (6-20) Glucose Level 87 mg/dL (70-99) Calcium Level 8.8 mg/dL (8.5-10.1) Total Bilirubin 0.3 mg/dL (0.2-1.0) Aspartate Amino Transf (AST/SGOT) 16 U/L (15-37) Alanine Aminotransferase (ALT/SGPT) 14 U/L (14-59) Alkaline Phosphatase 47 U/L (46-116) Total Protein 7.0 g/dL (6.4-8.2) Albumin 3.9 g/dL (3.4-5.0) Albumin/Globulin Ratio 1.3 (1.0-1.7) Lipase 100 U/L (73-393) SARS-CoV-2 Antigen (Rapid) Negative (NEGATIVE) Images Images Ct with min appendiceal thickening Assessment/Plan Assessment/Plan RLQ abd pain agree with observation hopefully is self limiting if pain worsens, will consider appendectomy Thanks for consult! MARY DAVIS MD Jun 24, 2020 17:26
[2020-06-24] MEDS: IV NORMAL SALINE 1000ML BAG 1,000 ML IV SCH ×2 (18:01→23:02)
[2020-06-24 19:00] VITALS: BP 109/68
[2020-06-24 23:00] VITALS: BP 113/42
[2020-06-25 03:00] VITALS: BP 115/50
[2020-06-25] MEDS: IV NORMAL SALINE 1000ML BAG 1,000 ML IV SCH (06:43)
[2020-06-25 07:00] VITALS: BP 111/55
[2020-06-25 09:55] LABS: BASO % 1 % (0-3); EOS # 0.1 x10^3/uL (0.0-0.7); EOS % 2 % (0-3); HEMATOCRIT 33.9 % (36.0-47.0); HEMOGLOBIN 11.2 g/dL (12.0-15.5); LYMPH # 1.4 x10^3/uL (1.0-4.8); LYMPH % 36 % (24-48); MEAN CORPUSCULAR HEMOGLOBIN 28 pg (25-35); MEAN CORPUSCULAR HGB CONC 33 g/dL (31-37); MEAN CORPUSCULAR VOLUME 85 fL (79-100); MONO # 0.5 x10^3/uL (0.0-1.1); MONO % 12 % (0-9); NEUT % 50 % (31-73); PLATELET COUNT 183 x10^3/uL (140-400); RED CELL DISTRIBUTION WIDTH 17.5 % (11.5-14.5); WHITE BLOOD COUNT 3.9 x10^3/uL (4.0-11.0)
[2020-06-25 10:23] LABS: CALCIUM 8.2 mg/dL (8.5-10.1); CREATININE 0.8 mg/dL (0.6-1.0); GFR 88.1; POTASSIUM 4.1 mmol/L (3.5-5.1)
--- NOTE | 2020-06-25 10:40 | PDOC ---
[employer] PROGRESS NOTE Date of Service DOS: DATE: 06/25/20 TIME: 10:36 Chief Complaint Chief Complaint Acute appendicitis Hx - GERD History of Present Illness History of Present Illness 06/25/2020 Patient seen and examined. Patient reports she has minimal pain. Patient up and walking. ANEL patient's family. ANEL RN. Vitals/I&O Vitals/I&O: Vital Signs Date Time Temp Pulse Resp B/P (MAP) Pulse Ox O2 Delivery O2 Flow Rate FiO2 06/25/20 07:00 98.2 65 20 111/55 (73) 100 Room Air 98.2 I & O 06/24/20 06/24/20 06/25/20 15:00 23:00 07:00 Intake Total 1000 ml 600 ml Balance 1000 ml 600 ml Physical Exam General: Alert, Oriented X3, Cooperative, No acute distress Heart: Regular rate, Normal S1, Normal S2 Lungs: Clear Abdomen: Normal bowel sounds, Soft, Other (min TTP RLQ) Extremities: No clubbing, No cyanosis Skin: No rashes, No breakdown Labs Labs: Laboratory Tests Test 06/24/20 13:00 06/24/20 13:06 06/24/20 13:20 06/24/20 15:50 Urine Collection Type Unknown Urine Color Yellow Urine Clarity Clear Urine pH 6.5 (<5.0-8.0) Urine Specific [place] 1.020 (1.000-1.030) Urine Protein Negative mg/dL (NEG-TRACE) Urine Glucose (UA) Negative mg/dL (NEG) Urine Ketones (Stick) Trace mg/dL (NEG) Urine Blood Moderate (NEG) Urine Nitrite Negative (NEG) Urine Bilirubin Negative (NEG) Urine Urobilinogen Dipstick 0.2 mg/dL (0.2 mg/dL) Urine Leukocyte Esterase Trace (NEG) Urine RBC Rare /HPF (0-2) Urine WBC Occ /HPF (0-4) Urine Squamous Epithelial Cells Few /LPF Urine Bacteria Moderate /HPF (0-FEW) Urine Mucus Mod /LPF Urine Opiates Screen Neg (NEG) Urine Methadone Screen Neg (NEG) Urine Barbiturates Neg (NEG) Urine Phencyclidine Screen Neg (NEG) Urine Amphetamine/Methamphetamine Neg (NEG) Urine Benzodiazepines Screen Neg (NEG) Urine Cocaine Screen Neg (NEG) Urine Cannabinoids Screen Neg (NEG) Urine Ethyl Alcohol Neg (NEG) Bedside Urine HCG, Qualitative Hcg negative (Negative) White Blood Count 2.9 x10^3/uL (4.0-11.0) Red Blood Count 4.36 x10^6/uL (3.50-5.40) Hemoglobin 12.3 g/dL (12.0-15.5) Hematocrit 36.6 % (36.0-47.0) Mean Corpuscular Volume 84 fL (79-100) Mean Corpuscular Hemoglobin 28 pg (25-35) Mean Corpuscular Hemoglobin Concent 34 g/dL (31-37) Red Cell Distribution Width 17.3 % (11.5-14.5) Platelet Count 196 x10^3/uL (140-400) Neutrophils (%) (Auto) 54 % (31-73) Lymphocytes (%) (Auto) 31 % (24-48) Monocytes (%) (Auto) 13 % (0-9) Eosinophils (%) (Auto) 1 % (0-3) Basophils (%) (Auto) 1 % (0-3) Neutrophils # (Auto) 1.6 x10^3/uL (1.8-7.7) Lymphocytes # (Auto) 0.9 x10^3/uL (1.0-4.8) Monocytes # (Auto) 0.4 x10^3/uL (0.0-1.1) Eosinophils # (Auto) 0.0 x10^3/uL (0.0-0.7) Basophils # (Auto) 0.0 x10^3/uL (0.0-0.2) Prothrombin Time 13.8 SEC (11.7-14.0) Prothromb Time International Ratio 1.1 (0.8-1.1) Sodium Level 137 mmol/L (136-145) Potassium Level 3.8 mmol/L (3.5-5.1) Chloride Level 104 mmol/L (98-107) Carbon Dioxide Level 29 mmol/L (21-32) Anion Gap 4 (6-14) Blood Urea Nitrogen 13 mg/dL (7-20) Creatinine 0.8 mg/dL (0.6-1.0) Estimated GFR (Cockcroft-Gault) 88.1 BUN/Creatinine Ratio 16 (6-20) Glucose Level 87 mg/dL (70-99) Calcium Level 8.8 mg/dL (8.5-10.1) Total Bilirubin 0.3 mg/dL (0.2-1.0) Aspartate Amino Transf (AST/SGOT) 16 U/L (15-37) Alanine Aminotransferase (ALT/SGPT) 14 U/L (14-59) Alkaline Phosphatase 47 U/L (46-116) Total Protein 7.0 g/dL (6.4-8.2) Albumin 3.9 g/dL (3.4-5.0) Albumin/Globulin Ratio 1.3 (1.0-1.7) Lipase 100 U/L (73-393) SARS-CoV-2 Antigen (Rapid) Negative (NEGATIVE) Test 06/25/20 09:03 White Blood Count 3.9 x10^3/uL (4.0-11.0) Red Blood Count 4.00 x10^6/uL (3.50-5.40) Hemoglobin 11.2 g/dL (12.0-15.5) Hematocrit 33.9 % (36.0-47.0) Mean Corpuscular Volume 85 fL (79-100) Mean Corpuscular Hemoglobin 28 pg (25-35) Mean Corpuscular Hemoglobin Concent 33 g/dL (31-37) Red Cell Distribution Width 17.5 % (11.5-14.5) Platelet Count 183 x10^3/uL (140-400) Neutrophils (%) (Auto) 50 % (31-73) Lymphocytes (%) (Auto) 36 % (24-48) Monocytes (%) (Auto) 12 % (0-9) Eosinophils (%) (Auto) 2 % (0-3) Basophils (%) (Auto) 1 % (0-3) Neutrophils # (Auto) 2.0 x10^3/uL (1.8-7.7) Lymphocytes # (Auto) 1.4 x10^3/uL (1.0-4.8) Monocytes # (Auto) 0.5 x10^3/uL (0.0-1.1) Eosinophils # (Auto) 0.1 x10^3/uL (0.0-0.7) Basophils # (Auto) 0.0 x10^3/uL (0.0-0.2) Sodium Level 141 mmol/L (136-145) Potassium Level 4.1 mmol/L (3.5-5.1) Chloride Level 109 mmol/L (98-107) Carbon Dioxide Level 27 mmol/L (21-32) Anion Gap 5 (6-14) Blood Urea Nitrogen 7 mg/dL (7-20) Creatinine 0.8 mg/dL (0.6-1.0) Estimated GFR (Cockcroft-Gault) 88.1 Glucose Level 79 mg/dL (70-99) Calcium Level 8.2 mg/dL (8.5-10.1) Review of Systems Review of Systems: no dizziness no vomiting no fever Assessment and Plan Assessmemt and Plan Problems Medical Problems: (1) Acute appendicitis Status: Acute Assessment: Acute appendicitis PMHx GERD Plan: IV Zofran. Continue IV fluid. Trend labs. PT, OT. DVT prophylaxis. Full code. Subspecialty input appreciated. Comment Review of Relevant I have reviewed the following items beti (where applicable) has been applied. Medications: Current Medications Medications (Trade) Dose Ordered Sig/Cameron Route PRN Reason Start Time Stop Time Status Last Admin Dose Admin Sodium Chloride 1,000 ml @ 1,000 mls/hr Q1H IV 06/24/20 13:04 06/24/20 14:03 DC 06/24/20 13:34 Fentanyl Citrate (Fentanyl 2ml Vial) 50 mcg 1X ONCE IVP 06/24/20 13:15 06/24/20 13:16 DC 06/24/20 13:33 Ondansetron HCl (Zofran) 4 mg 1X ONCE IVP 06/24/20 13:15 06/24/20 13:16 DC 06/24/20 13:32 Iohexol (Omnipaque 300 Mg/ml) 75 ml 1X ONCE IV 06/24/20 14:00 06/24/20 14:01 DC 06/24/20 13:59 Sodium Chloride 1,000 ml @ 125 mls/hr Q8H IV 06/24/20 14:51 06/25/20 14:50 06/25/20 06:43 Justifications for Admission Other Justification Appendicitis CHENCHO QUINTANILLA III DO Jun 25, 2020 10:40
[2020-06-25 11:00] VITALS: BP 112/58
--- NOTE | 2020-06-25 12:10 | PDOC ---
CECI CROCKETT CASE RESOURCE MANAGER 06/25/20 1209: SURGICAL PROGRESS NOTE DATE: 06/25/20 TIME: 12:08 Subjective feels much better no significant pain since yesterday 4pm no n/v ? hungry pains while walking Vital Signs Vital Signs Date Time Temp Pulse Resp B/P (MAP) Pulse Ox O2 Delivery O2 Flow Rate FiO2 06/25/20 11:00 98.0 72 20 112/58 (76) 100 Room Air 98.0 I&O Intake and Output 06/25/20 07:00 Intake Total 1600 ml Balance 1600 ml Intake Oral 600 ml IV Total 1000 ml # Voids 5 General: Alert, Oriented X3, Cooperative Abdomen: Soft, No tenderness, No hepatosplenomegaly Labs Laboratory Tests Test 06/24/20 13:00 06/24/20 13:06 06/24/20 13:20 06/24/20 15:50 Urine Collection Type Unknown Urine Color Yellow Urine Clarity Clear Urine pH 6.5 (<5.0-8.0) Urine Specific [place] 1.020 (1.000-1.030) Urine Protein Negative mg/dL (NEG-TRACE) Urine Glucose (UA) Negative mg/dL (NEG) Urine Ketones (Stick) Trace mg/dL (NEG) Urine Blood Moderate (NEG) Urine Nitrite Negative (NEG) Urine Bilirubin Negative (NEG) Urine Urobilinogen Dipstick 0.2 mg/dL (0.2 mg/dL) Urine Leukocyte Esterase Trace (NEG) Urine RBC Rare /HPF (0-2) Urine WBC Occ /HPF (0-4) Urine Squamous Epithelial Cells Few /LPF Urine Bacteria Moderate /HPF (0-FEW) Urine Mucus Mod /LPF Urine Opiates Screen Neg (NEG) Urine Methadone Screen Neg (NEG) Urine Barbiturates Neg (NEG) Urine Phencyclidine Screen Neg (NEG) Urine Amphetamine/Methamphetamine Neg (NEG) Urine Benzodiazepines Screen Neg (NEG) Urine Cocaine Screen Neg (NEG) Urine Cannabinoids Screen Neg (NEG) Urine Ethyl Alcohol Neg (NEG) Bedside Urine HCG, Qualitative Hcg negative (Negative) White Blood Count 2.9 x10^3/uL (4.0-11.0) Red Blood Count 4.36 x10^6/uL (3.50-5.40) Hemoglobin 12.3 g/dL (12.0-15.5) Hematocrit 36.6 % (36.0-47.0) Mean Corpuscular Volume 84 fL (79-100) Mean Corpuscular Hemoglobin 28 pg (25-35) Mean Corpuscular Hemoglobin Concent 34 g/dL (31-37) Red Cell Distribution Width 17.3 % (11.5-14.5) Platelet Count 196 x10^3/uL (140-400) Neutrophils (%) (Auto) 54 % (31-73) Lymphocytes (%) (Auto) 31 % (24-48) Monocytes (%) (Auto) 13 % (0-9) Eosinophils (%) (Auto) 1 % (0-3) Basophils (%) (Auto) 1 % (0-3) Neutrophils # (Auto) 1.6 x10^3/uL (1.8-7.7) Lymphocytes # (Auto) 0.9 x10^3/uL (1.0-4.8) Monocytes # (Auto) 0.4 x10^3/uL (0.0-1.1) Eosinophils # (Auto) 0.0 x10^3/uL (0.0-0.7) Basophils # (Auto) 0.0 x10^3/uL (0.0-0.2) Prothrombin Time 13.8 SEC (11.7-14.0) Prothromb Time International Ratio 1.1 (0.8-1.1) Sodium Level 137 mmol/L (136-145) Potassium Level 3.8 mmol/L (3.5-5.1) Chloride Level 104 mmol/L (98-107) Carbon Dioxide Level 29 mmol/L (21-32) Anion Gap 4 (6-14) Blood Urea Nitrogen 13 mg/dL (7-20) Creatinine 0.8 mg/dL (0.6-1.0) Estimated GFR (Cockcroft-Gault) 88.1 BUN/Creatinine Ratio 16 (6-20) Glucose Level 87 mg/dL (70-99) Calcium Level 8.8 mg/dL (8.5-10.1) Total Bilirubin 0.3 mg/dL (0.2-1.0) Aspartate Amino Transf (AST/SGOT) 16 U/L (15-37) Alanine Aminotransferase (ALT/SGPT) 14 U/L (14-59) Alkaline Phosphatase 47 U/L (46-116) Total Protein 7.0 g/dL (6.4-8.2) Albumin 3.9 g/dL (3.4-5.0) Albumin/Globulin Ratio 1.3 (1.0-1.7) Lipase 100 U/L (73-393) SARS-CoV-2 Antigen (Rapid) Negative (NEGATIVE) Test 06/25/20 09:03 White Blood Count 3.9 x10^3/uL (4.0-11.0) Red Blood Count 4.00 x10^6/uL (3.50-5.40) Hemoglobin 11.2 g/dL (12.0-15.5) Hematocrit 33.9 % (36.0-47.0) Mean Corpuscular Volume 85 fL (79-100) Mean Corpuscular Hemoglobin 28 pg (25-35) Mean Corpuscular Hemoglobin Concent 33 g/dL (31-37) Red Cell Distribution Width 17.5 % (11.5-14.5) Platelet Count 183 x10^3/uL (140-400) Neutrophils (%) (Auto) 50 % (31-73) Lymphocytes (%) (Auto) 36 % (24-48) Monocytes (%) (Auto) 12 % (0-9) Eosinophils (%) (Auto) 2 % (0-3) Basophils (%) (Auto) 1 % (0-3) Neutrophils # (Auto) 2.0 x10^3/uL (1.8-7.7) Lymphocytes # (Auto) 1.4 x10^3/uL (1.0-4.8) Monocytes # (Auto) 0.5 x10^3/uL (0.0-1.1) Eosinophils # (Auto) 0.1 x10^3/uL (0.0-0.7) Basophils # (Auto) 0.0 x10^3/uL (0.0-0.2) Sodium Level 141 mmol/L (136-145) Potassium Level 4.1 mmol/L (3.5-5.1) Chloride Level 109 mmol/L (98-107) Carbon Dioxide Level 27 mmol/L (21-32) Anion Gap 5 (6-14) Blood Urea Nitrogen 7 mg/dL (7-20) Creatinine 0.8 mg/dL (0.6-1.0) Estimated GFR (Cockcroft-Gault) 88.1 Glucose Level 79 mg/dL (70-99) Calcium Level 8.2 mg/dL (8.5-10.1) Laboratory Tests Test 06/24/20 13:00 06/24/20 13:06 06/24/20 13:20 06/24/20 15:50 Urine Collection Type Unknown Urine Color Yellow Urine Clarity Clear Urine pH 6.5 (<5.0-8.0) Urine Specific [place] 1.020 (1.000-1.030) Urine Protein Negative mg/dL (NEG-TRACE) Urine Glucose (UA) Negative mg/dL (NEG) Urine Ketones (Stick) Trace mg/dL (NEG) Urine Blood Moderate (NEG) Urine Nitrite Negative (NEG) Urine Bilirubin Negative (NEG) Urine Urobilinogen Dipstick 0.2 mg/dL (0.2 mg/dL) Urine Leukocyte Esterase Trace (NEG) Urine RBC Rare /HPF (0-2) Urine WBC Occ /HPF (0-4) Urine Squamous Epithelial Cells Few /LPF Urine Bacteria Moderate /HPF (0-FEW) Urine Mucus Mod /LPF Urine Opiates Screen Neg (NEG) Urine Methadone Screen Neg (NEG) Urine Barbiturates Neg (NEG) Urine Phencyclidine Screen Neg (NEG) Urine Amphetamine/Methamphetamine Neg (NEG) Urine Benzodiazepines Screen Neg (NEG) Urine Cocaine Screen Neg (NEG) Urine Cannabinoids Screen Neg (NEG) Urine Ethyl Alcohol Neg (NEG) Bedside Urine HCG, Qualitative Hcg negative (Negative) White Blood Count 2.9 x10^3/uL (4.0-11.0) Red Blood Count 4.36 x10^6/uL (3.50-5.40) Hemoglobin 12.3 g/dL (12.0-15.5) Hematocrit 36.6 % (36.0-47.0) Mean Corpuscular Volume 84 fL (79-100) Mean Corpuscular Hemoglobin 28 pg (25-35) Mean Corpuscular Hemoglobin Concent 34 g/dL (31-37) Red Cell Distribution Width 17.3 % (11.5-14.5) Platelet Count 196 x10^3/uL (140-400) Neutrophils (%) (Auto) 54 % (31-73) Lymphocytes (%) (Auto) 31 % (24-48) Monocytes (%) (Auto) 13 % (0-9) Eosinophils (%) (Auto) 1 % (0-3) Basophils (%) (Auto) 1 % (0-3) Neutrophils # (Auto) 1.6 x10^3/uL (1.8-7.7) Lymphocytes # (Auto) 0.9 x10^3/uL (1.0-4.8) Monocytes # (Auto) 0.4 x10^3/uL (0.0-1.1) Eosinophils # (Auto) 0.0 x10^3/uL (0.0-0.7) Basophils # (Auto) 0.0 x10^3/uL (0.0-0.2) Prothrombin Time 13.8 SEC (11.7-14.0) Prothromb Time International Ratio 1.1 (0.8-1.1) Sodium Level 137 mmol/L (136-145) Potassium Level 3.8 mmol/L (3.5-5.1) Chloride Level 104 mmol/L (98-107) Carbon Dioxide Level 29 mmol/L (21-32) Anion Gap 4 (6-14) Blood Urea Nitrogen 13 mg/dL (7-20) Creatinine 0.8 mg/dL (0.6-1.0) Estimated GFR (Cockcroft-Gault) 88.1 BUN/Creatinine Ratio 16 (6-20) Glucose Level 87 mg/dL (70-99) Calcium Level 8.8 mg/dL (8.5-10.1) Total Bilirubin 0.3 mg/dL (0.2-1.0) Aspartate Amino Transf (AST/SGOT) 16 U/L (15-37) Alanine Aminotransferase (ALT/SGPT) 14 U/L (14-59) Alkaline Phosphatase 47 U/L (46-116) Total Protein 7.0 g/dL (6.4-8.2) Albumin 3.9 g/dL (3.4-5.0) Albumin/Globulin Ratio 1.3 (1.0-1.7) Lipase 100 U/L (73-393) SARS-CoV-2 Antigen (Rapid) Negative (NEGATIVE) Test 06/25/20 09:03 White Blood Count 3.9 x10^3/uL (4.0-11.0) Red Blood Count 4.00 x10^6/uL (3.50-5.40) Hemoglobin 11.2 g/dL (12.0-15.5) Hematocrit 33.9 % (36.0-47.0) Mean Corpuscular Volume 85 fL (79-100) Mean Corpuscular Hemoglobin 28 pg (25-35) Mean Corpuscular Hemoglobin Concent 33 g/dL (31-37) Red Cell Distribution Width 17.5 % (11.5-14.5) Platelet Count 183 x10^3/uL (140-400) Neutrophils (%) (Auto) 50 % (31-73) Lymphocytes (%) (Auto) 36 % (24-48) Monocytes (%) (Auto) 12 % (0-9) Eosinophils (%) (Auto) 2 % (0-3) Basophils (%) (Auto) 1 % (0-3) Neutrophils # (Auto) 2.0 x10^3/uL (1.8-7.7) Lymphocytes # (Auto) 1.4 x10^3/uL (1.0-4.8) Monocytes # (Auto) 0.5 x10^3/uL (0.0-1.1) Eosinophils # (Auto) 0.1 x10^3/uL (0.0-0.7) Basophils # (Auto) 0.0 x10^3/uL (0.0-0.2) Sodium Level 141 mmol/L (136-145) Potassium Level 4.1 mmol/L (3.5-5.1) Chloride Level 109 mmol/L (98-107) Carbon Dioxide Level 27 mmol/L (21-32) Anion Gap 5 (6-14) Blood Urea Nitrogen 7 mg/dL (7-20) Creatinine 0.8 mg/dL (0.6-1.0) Estimated GFR (Cockcroft-Gault) 88.1 Glucose Level 79 mg/dL (70-99) Calcium Level 8.2 mg/dL (8.5-10.1) Problem List Problems Medical Problems: (1) Acute appendicitis Status: Acute Assessment/Plan benign abdominal exam labs stable can DC home Justicifation of Admission Dx: Justifications for Admission: Justification of Admission Dx: Yes Comments: abdominal pain MARY DAVIS MD 06/25/20 1302: SURGICAL PROGRESS NOTE Assessment/Plan Pt seen and examined. Agree with Ms. Crockett's note Pt feels "normal" abd soft, NTTP d/w pt and pt's parents OK to d/c f/u PRN CECI CROCKETT APRN Jun 25, 2020 12:09 MARY DAVIS MD Jun 25, 2020 13:02
--- NOTE | 2020-06-25 14:13 | NUR ---
Pt discharged home with self care. Discharge instructions discussed. Pt verbalized understanding. IV removed. Pt ambulated to ED entrance
== END 2020-06-25 14:15 | disposition home or self-care (01) | DRG 395 ==
LOC: ER 12:42 → 4 NORTH 14:30
PROVIDERS: ADMIT Family Medicine; ATTEND Family Medicine
DX: K35.80 Unspecified acute appendicitis (principal); Z88.1 Allergy status to other antibiotic agents; Z88.0 Allergy status to penicillin; K21.9 Gastro-esophageal reflux disease without esophagitis; Z20.828 Contact with and (suspected) exposure to other viral communicable diseases
CPT/HCPCS: 36415; 74177; 80048; 80053; 80307; 81001; 81025; 83690; 85025; 85610; 87086; 87426; J2405; J3010; J7030; Q9967; G0378; U0003-CS

== ENCOUNTER 2020-07-20 13:44 | Emergency (ER) | payer OTHER ==
[~2020-07-20] VITALS: Ht 162.6 cm; Wt 66.0 kg
[2020-07-20] MEDS ORDERED: IV NORMAL SALINE 1000ML BAG 1,000 ML IV SCH (14:27)
[2020-07-20] MEDS ORDERED: fentaNYL PF VIAL 100 MCG/2 ML VIAL IVP ONE (14:30)
[2020-07-20] MEDS ORDERED: ONDANSETRON PF 4 MG/2 ML VIAL. IVP ONE (14:30)
[2020-07-20 14:36] LABS: BASO % 1 % (0-3); EOS # 0.4 x10^3/uL (0.0-0.7); EOS % 9 % (0-3); HEMOGLOBIN 13.2 g/dL (12.0-15.5); LYMPH # 1.2 x10^3/uL (1.0-4.8); LYMPH % 28 % (24-48); MEAN CORPUSCULAR HEMOGLOBIN 29 pg (25-35); MEAN CORPUSCULAR HGB CONC 34 g/dL (31-37); MEAN CORPUSCULAR VOLUME 86 fL (79-100); MONO # 0.4 x10^3/uL (0.0-1.1); MONO % 9 % (0-9); NEUT # 2.4 x10^3/uL (1.8-7.7); NEUT % 54 % (31-73); PLATELET COUNT 191 x10^3/uL (140-400); RED BLOOD COUNT 4.54 x10^6/uL (3.50-5.40); RED CELL DISTRIBUTION WIDTH 16.7 % (11.5-14.5); WHITE BLOOD COUNT 4.5 x10^3/uL (4.0-11.0)
[2020-07-20 14:37] LABS: BILIRUBIN,URINE NEGATIVE (NEG); CLARITY,URINE CLEAR; COLOR,URINE YELLOW; NITRITE,URINE NEGATIVE (NEG); PROTEIN,URINE NEGATIVE (NEG-TRACE); UROBILINOGEN,URINE 0.2 mg/dL (0.2 mg/dL)
[2020-07-20 14:42] LABS: CALCIUM 8.7 mg/dL (8.5-10.1); CREATININE 0.7 mg/dL (0.6-1.0); GFR 102.8; POTASSIUM 3.8 mmol/L (3.5-5.1)
--- NOTE | 2020-07-20 14:43 | PHYS DOC ---
Past Medical History Past Medical History: GERD, Other Additional Past Medical Histor: bladder mass-benign, IBS-C (DEANN MIRANDA TIP MENDER) Past Surgical History: Tonsillectomy Additional Past Surgical Histo: mass removed next to bladder, adenoidectomy (DEANN MIRANDA TIP MENDER) Smoking Status: Never Smoker Alcohol Use: Occasionally Drug Use: None (DEANN MIRANDA TIP MENDER) General Adult EDM: Chief Complaint: ABDOMINAL PAIN HPI: HPI: Patient is a 25 year old female who presents with nausea with worsening umbilical pain for the last 2 days. She was here on June 24 and was admitted to the hospital because she had a enlarged appendix. It was never taken out. She states that she did follow-up with Dr. Villafuerte. She states that the pain comes in waves but never totally goes away. She states it varies in quality and states at times it can be sharp, or dull or just an ache. She states that walking makes the pain worse. He states the car ride made her nausea worse. She states that she has not been vomiting. States that she ran a fever 2 days ago but it went away. Patient denies vomiting, diarrhea, constipation, cough, dizziness, headache, chest pain, shortness of air, numbness or tingling. She rates her pain currently a 2 out of 10. Patient has a history of IBS-C, GERD, tonsillectomy, bladder mass removal. (DEANN MIRANDA TIP MENDER) Review of Systems: Review of Systems: Constitutional: + fever or chills. [] Eyes: Denies change in visual acuity. [] HENT: Denies nasal congestion or sore throat. [] Respiratory: Denies cough or shortness of breath. [] Cardiovascular: Denies chest pain or edema. [] GI: + abdominal pain, +nausea, denies vomiting, +bloody stools or denies diarrhea. [] : Denies dysuria. [] Musculoskeletal: Denies back pain or joint pain. [] Integument: Denies rash. [] Neurologic: Denies headache, focal weakness or sensory changes. [] Endocrine: Denies polyuria or polydipsia. [] Lymphatic: Denies swollen glands. [] Psychiatric: Denies depression or anxiety. [] (DEANN MIRANDA TIP MENDER) Heart Score: Risk Factors: Risk Factors: DM, Current or recent (<one month) smoker, HTN, HLP, family history of CAD, obesity. Risk Scores: Score 0 - 3: 2.5% MACE over next 6 weeks - Discharge Home Score 4 - 6: 20.3% MACE over next 6 weeks - Admit for Clinical Observation Score 7 - 10: 72.7% MACE over next 6 weeks - Early Invasive Strategies (DEANN MIRANDA APRN) Current Medications: Current Medications Medications (Trade) Dose Ordered Sig/Cameron Start Time Stop Time Status Last Admin Dose Admin Fentanyl Citrate (Fentanyl 2ml Vial) 50 mcg 1X ONCE 07/20/20 14:30 07/20/20 14:33 DC Ondansetron HCl (Zofran) 4 mg 1X ONCE 07/20/20 14:30 07/20/20 14:33 DC Sodium Chloride 1,000 ml @ 1,000 mls/hr Q1H 07/20/20 14:27 07/20/20 15:26 (DEANN MIRANDA APRN) Allergies: Allergies: Allergies Coded Allergies Type Severity Reaction Last Updated Verified Penicillins Allergy Severe hives, sob 06/24/20 Yes amoxicillin Allergy Severe hives, sob 06/24/20 Yes (DEANN MIRANDA APRN) Physical Exam: PE: Constitutional: Well developed, well nourished, no acute distress, non-toxic appearance. [] HENT: Normocephalic, atraumatic, bilateral external ears normal, oropharynx moist, no oral exudates, nose normal. [] Eyes: PERRLA, EOMI, conjunctiva normal, no discharge. [] Neck: Normal range of motion, no tenderness, supple, no stridor. [] Cardiovascular:Heart rate regular rhythm, no murmur [] Lungs & Thorax: Bilateral breath sounds clear to auscultation [] Abdomen: Bowel sounds normal, soft, umbilical tenderness, no masses, no pulsa tile masses. [] Skin: Warm, dry, no erythema, no rash. [] Back: No tenderness, no CVA tenderness. [] Extremities: No tenderness, no cyanosis, no clubbing, ROM intact, no edema. [] Neurologic: Alert and oriented X 3, normal motor function, normal sensory function, no focal deficits noted. [] Psychologic: Affect normal, judgement normal, mood normal. [] (DEANN MIRANDA APRN) Current Patient Data: Labs: Laboratory Tests Test 07/20/20 14:15 POC Urine HCG, Qualitative Hcg negative (Negative) Vital Signs: Vital Signs Date Time Temp Pulse Resp B/P (MAP) Pulse Ox O2 Delivery O2 Flow Rate FiO2 07/20/20 14:20 98.3 68 16 124/62 (82) 100 Room Air 98.3 (DEANN MIRANDA APRN) EKG: EKG: [] (DEANN MIRANDA APRN) Radiology/Procedures: Radiology/Procedures: [] Impression: [facility] [address] [place] [address] IMAGING REPORT Signed PATIENT: MONO EMMANUEL ACCOUNT: [id number] : 1995 LOCATION: ER AGE: 25 SEX: F EXAM STATUS: REG ER ORD. PHYSICIAN: DEANN MIRANDA APRN REASON: umbilical pain increase, enlarged appendix PROCEDURE: CT ABD PELV W/ IV CONTRST ONLY EXAM: CT ABDOMEN/PELVIS WITH CONTRAST. HISTORY: Increasing abdominal pain. TECHNIQUE: Computed tomography of the abdomen and pelvis was performed after the intravenous administration of iodinated contrast. One or more of the following individualized dose reduction techniques were utilized for this examination: 1. Automated exposure control. 2. Adjustment of the mA and/or kV according to patient size. 3. Use of iterative reconstruction technique. COMPARISON: 06/24/2020. FINDINGS: Lung windows through the visualized portions of the bases reveal mild atelectasis. Bone windows reveal no suspicious lesions. A small lesion demonstrating nodular enhancement within hepatic segment 2 measures 10 mm and is consistent with a benign hemangioma. The gallbladder, pancreas, spleen, adrenal glands and kidneys are unremarkable. The appendix contains gas and does not appear inflamed. There is no small bowel obstruction. There is no small bowel obstruction. A small amount of free pelvic fluid is likely physiologic. IMPRESSION: 1. No cause for acute pain is identified. Normal appendix. 2. 10 mm benign hepatic hemangioma. Electronically signed by: Raul Poon MD (07/20/2020 3:05 PM) [id number] DICTATED and SIGNED BY: RELL POON MD DATE: 07/20/20 1505 (DEANN MIRANDA APRN) Course & Med Decision Making: Course & Med Decision Making Pertinent Labs and Imaging studies reviewed. (See chart for details) See HPI. Abdomen is soft but tender at umbilicus. There is no rebound tenderness. Ambulatory with a steady gait. Vital signs within normal limits. Afebrile. Speaks in full clear sentences. Skin pink warm and dry. Rectal Exam: Normal tone, No mass, Positive control Stool: Brown/ Mucus Guaiac: Positive Blood work unremarkable. CT shows no acute findings. Urinalysis shows no infection. Fecal occult stool was positive. Given patient states this is been going on for the last 6 months, CT normal, and blood work normal, patient needs to follow-up with her primary care physician concerning this and I recommend a colonoscopy. She remains afebrile. Vital signs are normal. [] (DEANN MIRANDA APRN) Course & Med Decision Making I have reviewed the PA/HOSPICE EXECUTIVE DIRECTOR's note and Plan of Care. I was available for consultation as needed during the patient's visit in the emergency department. I agree with the clinical impression, plans and disposition. (JOEL CHAVARRIA MD) Dragon Disclaimer: Dragon Disclaimer: This electronic medical record was generated, in whole or in part, using a voice recognition dictation system. (DEANN MIRANDA APRN) Departure Departure Impression: Primary Impression: Nonspecific abdominal pain Additional Impression: Positive fecal occult blood test Disposition: 01 [place] HOME SELF CARE/HOMELESS Condition: STABLE Referrals: MARY IGNACIO MD (PCP) JOEL CERVANTES MD Patient Instructions: Abdominal Pain (Nonspecific), Fecal Occult Blood Test Additional Instructions: Follow-up with primary care physician as soon as possible. I have also referred you to a GI doctor. Drink plenty of fluids. If you begin having very large clots in your stools or increased bleeding come back to the emergency room. You begin running a fever or having severe abdominal pain return to the emergency room. Scripts No Active Prescriptions or Reported Meds DEANN MIRANDA APRN Jul 20, 2020 14:43 JOEL CHAVARRIA MD Jul 20, 2020 16:01
[2020-07-20 14:44] LABS: BACTERIA,URINE 0 /HPF (0-FEW); RBC,URINE 0 /HPF (0-2); WBC,URINE RARE /HPF (0-4)
[2020-07-20 14:44] LABS: PROTHROMBIN TIME PATIENT 13.3 SEC (11.7-14.0)
[2020-07-20] MEDS ORDERED: IOHEXOL 300 MG/ML 100ML VIAL. IV ONE (14:45)
[2020-07-20 14:49] LABS: ALBUMIN 3.9 g/dL (3.4-5.0); ALBUMIN/GLOBULIN RATIO 1.1 (1.0-1.7); TOTAL BILIRUBIN 0.2 mg/dL (0.2-1.0); TOTAL PROTEIN 7.3 g/dL (6.4-8.2)
[2020-07-20] MEDS ORDERED: CONTRAST GIVEN. MC PRN (15:00)
--- NOTE | 2020-07-20 15:08 | RAD ---
EXAM: CT ABDOMEN/PELVIS WITH CONTRAST. HISTORY: Increasing abdominal pain. TECHNIQUE: Computed tomography of the abdomen and pelvis was performed after the intravenous administration of iodinated contrast. One or more of the following individualized dose reduction techniques were utilized for this examination: 1. Automated exposure control. 2. Adjustment of the mA and/or kV according to patient size. 3. Use of iterative reconstruction technique. COMPARISON: 06/24/2020. FINDINGS: Lung windows through the visualized portions of the bases reveal mild atelectasis. Bone windows reveal no suspicious lesions. A small lesion demonstrating nodular enhancement within hepatic segment 2 measures 10 mm and is consistent with a benign hemangioma. The gallbladder, pancreas, spleen, adrenal glands and kidneys are unremarkable. The appendix contains gas and does not appear inflamed. There is no small bowel obstruction. There is no small bowel obstruction. A small amount of free pelvic fluid is likely physiologic. IMPRESSION: 1. No cause for acute pain is identified. Normal appendix. 2. 10 mm benign hepatic hemangioma. Electronically signed by: Raul Poon MD (07/20/2020 3:05 PM) [id number]
[2020-07-20 15:14] LABS: FECAL OB PT POSITIVE (NEG)
[2020-07-20 15:49] VITALS: BP 124/61
== END 2020-07-20 16:18 | disposition home or self-care (01) ==
LOC: ER 13:44
DX: R10.33 Periumbilical pain (principal); R19.5 Other fecal abnormalities; K21.9 Gastro-esophageal reflux disease without esophagitis; K58.1 Irritable bowel syndrome with constipation; Z88.0 Allergy status to penicillin; Z88.1 Allergy status to other antibiotic agents
CPT/HCPCS: 36415; 74177; 80053; 81001; 81025; 82274; 83690; 85025; 85610; 87086; 96361; 96374; 99285; J2405; J7030; Q9967

== ENCOUNTER → 2020-09-09 | Outpatient (CLI) | payer OTHER ==
[~2020-09-09] VITALS: Ht 162.6 cm; Wt 61.2 kg
[~2020-09-09] MED LIST changes: +SINCALIDE 1.22 MCG in IV NORMAL SALINE 50ML 30 ML IV ONE
--- NOTE | 2020-09-09 08:34 | RAD ---
Examination: US PELVIS W/TV History: Reason: ABD PAIN NAUSEA VOMITING PELVIC PAIN / Spl. Instructions: / History: Comparison/Correlation: None Findings: Transabdominal and transvaginal pelvic ultrasound was performed. Uterus measures 9.0 cm x 5.7 cm x 4.7 cm. Endometrial thickness is 0.9 cm . There is a 2.3 cm diamete r heterogeneous hyperechoic well-circumscribed mass at the anterior aspect of the uterine fundal myom etrium presumably represents a fibroid. Right ovary measures 2.4 cm x 2.8 cm x 1.8 cm. LEFT ovary measures 2.8 cm x 2.0 x 2.8 cm. Multiple ov nidhi follicles bilaterally are present. Simple left ovarian cyst measures up to 2.7 cm diameter. Nor mal ovarian flow is evident. No pelvic free fluid. Impression: Fibroid at the anterior uterine fundus. No suspicious pelvic process. Electronically signed by: Pascual Loco MD (09/09/2020 8:31 AM) [id number]
--- NOTE | 2020-09-09 09:40 | RAD ---
US ABDOMEN LTD: 09/09/2020 6:42 AM Indication: 25 years old Female. Abdominal pain, nausea and vomiting with pelvic pain Comparison: None. TECHNIQUE: Sonographic evaluation of the right upper quadrant was performed utilizing grayscale and c olor Doppler imaging. FINDINGS: Liver: Homogenous normal echotexture.. There is hepatopedal flow within the portal venous system. Rig ht hepatic lobe measures 14.1 cm. Biliary system: CBD measures 3 mm. There is no intrahepatic or extrahepatic biliary dilatation. Gallbladder: Echogenic foci within the neck of the gallbladder may reflect gallstones. No gallbladder wall thickening or pericholecystic fluid. 3 mm echogenic focus along the dependent gallbladder wall without definite shadowing could represent a gallstone or polyp. . Sonographic Baez sign: Negative Pancreas: Poorly visualized. Right kidney: 9.4 x 4.4 x 4.3 No hydronephrosis. Normal echotexture without focal mass or renal calcu fredi. Free fluid:None. IMPRESSION: 1. Cholelithiasis without sonographic evidence for acute cholecystitis. There is a 3 mm echogenic foc us along the nondependent gallbladder wall which does not shadow and may represent a gallstone versus polyp. 6 month follow-up limited ultrasound abdomen could be of benefit. Electronically signed by: Margarita Baker MD (09/09/2020 9:38 AM) [id number]
--- NOTE | 2020-09-09 10:06 | RAD ---
Hepatobiliary Scintigraphy with Sincalide Administration Radiopharmaceutical: 5.5 mCi Tc-99m mebrofenin I.V. History: Adult female with abdominal pain and nausea for 2 months. Technique: An anterior abdominal radionuclide angiogram was performed. Dynamic anterior abdominal imaging was then performed for 60 minutes. Findings: Following intravenous administration of Tc-99m mebrofenin, the anterior radionuclide angio gram demonstrates grossly normal perfusion of the liver without pericholecystic hyperperfusion. There is prompt, uniform accumulation of the tracer by the liver. There is normal filling of the int rahepatic ducts, common bile duct, and gallbladder. There is no excretions the duodenum over 60 minut es. In order to evaluate the contractile response of the gallbladder in response to cholecystokinin, the patient received a 1.22 mcg dose of sincalide given over 30 minutes of conscious intravenous infusion . Dynamic imaging was continued for 60 minutes after initiation of sincalide infusion. These images demonstrate prompt contraction of the gallbladder. The calculated gallbladder ejection fraction is 9 5% (normal is greater than 50%). The patient denied significant abdominal complaints during sincalid e infusion. Impression: 1. Normal hepatobiliary imaging study. 2. Normal contractile response of the gallbladder in response to cholecystokinin. Electronically signed by: Carlos Jasso MD (09/09/2020 10:03 AM) [id number]
== END ==
LOC: US 06:34
PROVIDERS: ATTEND Internal Medicine Gastroenterology
DX: D25.9 Leiomyoma of uterus, unspecified (principal); R10.84 Generalized abdominal pain; R11.2 Nausea with vomiting, unspecified
CPT/HCPCS: 76705; 76830; 76856; 78227; A9537; J2805

== ENCOUNTER → 2020-10-31 | Outpatient (CLI) | payer OTHER ==
[~2020-10-31] MED LIST changes: +OMEP20TA63 PO; -SINCALIDE 1.22 MCG in IV NORMAL SALINE 50ML 30 ML IV ONE; +VALA500T9 PO
== END ==
LOC: LAB 09:25
PROVIDERS: ATTEND Internal Medicine Gastroenterology
DX: Z01.812 Encounter for preprocedural laboratory examination (principal); Z20.822 Contact with and (suspected) exposure to COVID-19; K62.5 Hemorrhage of anus and rectum
CPT/HCPCS: U0003

== ENCOUNTER → 2020-11-02 | Day surgery (SDC) | payer OTHER ==
[~2020-11-02] MED LIST changes: +HYDROmorphone 2 MG/ML VIAL IVP PRN; +IV RINGERS,LACTATED 1000ML 1,000 ML IV SCH; +LIDOCAINE 2% PF 5 ML VIAL. ONE; +MORPHINE SULFATE 2 MG/ML VIAL. IVP PRN; +PROCHLORPERAZINE 10 MG/2 ML VIAL. IVP PRN; +PROPOFOL 10 MG/ML (20ML) VIAL. IV ONE; +fentaNYL PF VIAL 100 MCG/2 ML VIAL IVP PRN
--- NOTE | 2020-11-02 08:25 | CONS ---
DATE OF CONSULTATION: 11/02/2020 REFERRING PHYSICIAN: Dr. Brian Hamilton. HISTORY OF PRESENT ILLNESS: A 25-year-old female presents with abdominal pain, which is diffuse in nature, associated with nausea, diarrhea and rectal bleeding, had 2-month duration of symptoms and two CT scans have been unrevealing for additional pathology. No extraintestinal manifestations of IBD are noted. Prilosec 20 mg daily has been taken without improvement in the pain, but has controlled her reflux. No association with menstrual cycles. No exotic travel or well water consumption. With continued issues, requests additional evaluation. PAST MEDICAL HISTORY: Abdominal pain. ALLERGIES: PENICILLIN. MEDICATIONS: Include omeprazole and valacyclovir. FAMILY HISTORY AND SOCIAL HISTORY: Nonsmoker. Social drinker. PAST SURGICAL HISTORY: Significant for tonsillectomy and bladder cyst removal. FAMILY HISTORY: Questionable IBD with her mother. REVIEW OF SYSTEMS: Per records. PHYSICAL EXAMINATION: GENERAL: Reveals a well-nourished, well-developed female. VITAL SIGNS: Temperature is 98, pulse 80 and respiratory rate 20. LUNGS: Clear. CARDIOVASCULAR: Reveals an S1 and S2 without S3, S4 or appreciable murmur. ABDOMEN: Reveals a soft abdomen with diffuse tenderness. EXTREMITIES: No cyanosis, clubbing or edema. IMPRESSION AND PLAN: Nausea, abdominal pain, diarrhea, rectal bleeding, etiology is to be determined. Differential includes peptic ulcer disease, endometriosis, IBD, celiac disease, among others; therefore, I recommend upper endoscopy and colonoscopy. Risks and benefits have been previously discussed. The patient is willing to proceed. JOEL CERVANTES MD DR: MOUNIKA/mirna JOB#: [id number] / [id number]
[2020-11-02 08:40] VITALS: BP 109/62
--- NOTE | 2020-11-09 14:12 | PATHOLOGY ---
[facility] Accession Number: [id number] . 01 Material submitted: . PART A: duodenum - DUODENAL BX R/O CELIAC PART B: colon - RANDOM COLON BX . 01 Clinical history: . ABD PAIN, RECTAL BLEED . 02 Diagnosis: A. Duodenal biopsies: - No significant pathologic abnormalities. . B. Random colon biopsies: - Focal minimally active chronic colitis without granulomas or specific features. See comment. . (JPM:lucie/royce 11/07/2020) [facility] 11/09/2020 1133 Local . 02 Comment: Sections of the duodenal biopsy reveal multiple segments of duodenal mucosa. Where best oriented, the mucosal villi show no sprue-like changes or significant inflammatory changes. . Sections of the random colon biopsy reveal multiple segments of colonic mucosa. Most of the segments of colonic mucosa show no significant inflammation. However, there are several segments of colonic mucosa which show an increase of chronic inflammatory cells within the lamina propria and base of the mucosa. There are a few crypts which show neutrophilic infiltration of the epithelium. The findings are supportive of the diagnosis of a focal minimally active chronic colitis without granulomas or specific features. There is no dysplasia or evidence of malignancy. The case is also examined by Dr. Spann, who concurs with the diagnosis. . (JPM:lucie/oryce 11/07/2020) . 02 Electronically signed: . Romain Miller MD, Pathologist NPI- [id number] . 01 Gross description: . A. The specimen is received in formalin, labeled "Candy Landis, duodenal biopsy". Received are multiple segments of pale mandel soft tissue ranging in size from 0.3 to 0.6 cm in maximum dimensions. The specimen is submitted entirely in cassette A1. . B. The specimen is received in formalin, labeled "Candy Landis, random colon biopsy". Received are multiple segments of pale mandel soft tissue ranging in size from 0.3 to 0.7 cm in maximum dimensions. The specimen is submitted entirely in cassette B1. (CAA; 11/03/2020) QAC/QAC 11/03/2020 1510 Local . 02 Pathologist provided ICD-10: K52.9, R10.9, K92.1 . 02 CPT . 933124, [id number] Specimen Comment: A courtesy copy of this report has been sent to [phone] Specimen Comment: Report sent to / Performed at: 01 [facility] [address], [place] [id number] MD Noel Spann MD Phone: [phone] Performed at: 02 [facility] [address], [place] [id number] MD Romain Miller MD Phone: [phone]
== END | disposition home or self-care (01) ==
LOC: SURG 06:25
PROVIDERS: ATTEND Internal Medicine Gastroenterology
DX: R19.7 Diarrhea, unspecified (principal); K92.1 Melena; K64.0 First degree hemorrhoids; K31.89 Other diseases of stomach and duodenum; K63.89 Other specified diseases of intestine; R10.9 Unspecified abdominal pain; K21.9 Gastro-esophageal reflux disease without esophagitis; Z79.899 Other long term (current) drug therapy; Z98.890 Other specified postprocedural states; Z88.0 Allergy status to penicillin; Z88.1 Allergy status to other antibiotic agents; Z72.89 Other problems related to lifestyle
CPT/HCPCS: 43239; 45380; 81025; J2704

== ENCOUNTER → 2020-11-17 | Outpatient (CLI) | payer OTHER ==
[2020-11-02 08:40] VITALS: BP 109/62
[~2020-11-17] MED LIST changes: -HYDROmorphone 2 MG/ML VIAL IVP PRN; -IV RINGERS,LACTATED 1000ML 1,000 ML IV SCH; -LIDOCAINE 2% PF 5 ML VIAL. ONE; -MORPHINE SULFATE 2 MG/ML VIAL. IVP PRN; -PROCHLORPERAZINE 10 MG/2 ML VIAL. IVP PRN; -PROPOFOL 10 MG/ML (20ML) VIAL. IV ONE; -fentaNYL PF VIAL 100 MCG/2 ML VIAL IVP PRN
== END ==
LOC: LAB 11:03
PROVIDERS: ATTEND Internal Medicine Gastroenterology
DX: K52.9 Noninfective gastroenteritis and colitis, unspecified (principal); R10.9 Unspecified abdominal pain
CPT/HCPCS: 36415; 82306; 84590

== ENCOUNTER → 2021-11-14 | Outpatient (CLI) | payer OTHER ==
[2020-11-02 08:40] VITALS: BP 109/62
[~2021-11-14] MED LIST changes: -DOXY100C2 PO; +DOXY100C3 PO
--- NOTE | 2021-11-14 09:51 | KCIC ---
INDICATION: New onset of migraine COMPARISON: None. TECHNIQUE: Multiplanar, multisequence MRI images obtained through the brain. FINDINGS: No midline shift. Basilar cistern patent. No regions of abnormal restricted diffusion. Ventricles and sulci are within normal limits in size for the patient's age. No intracranial hemorrhage or gross mass seen. IMPRESSION: * No MRI evidence of acute infarct or hemorrhage. * Mild scattered foci of high T2 signal within the white matter. This is a common finding and nonspe cific in nature but can be sequela of migraine or minimal chronic small vessel ischemic changes. Electronically signed by: Shaun Cortes MD (11/14/2021 9:48 AM) [id number]
== END ==
LOC: KCIC MRI 08:08
PROVIDERS: ATTEND Psychiatry & Neurology Neurology with Special Qualifications in Child Neurology
DX: G43.009 Migraine without aura, not intractable, without status migrainosus (principal); G44.52 New daily persistent headache (NDPH); R42 Dizziness and giddiness; H93.8X9 Other specified disorders of ear, unspecified ear
CPT/HCPCS: 70551

== ENCOUNTER → 2021-12-19 | Outpatient (CLI) | payer OTHER ==
[2020-11-02 08:40] VITALS: BP 109/62
--- NOTE | 2021-12-19 12:27 | KCIC ---
XR RT WRIST 3VIEWS DATE: 12/19/2021 10:25 AM INDICATION: Rt. wrist pain 4 months. Pain ulnar aspect. COMPARISON: None. FINDINGS: Bones: There is no evidence of acute fracture or dislocation. Joints: The joint spaces are normal. Miscellaneous: None. IMPRESSION: Normal osseous structures Electronically signed by: Scott Cruz MD (12/19/2021 12:25 PM) [id number]
== END ==
LOC: KCIC 10:22
PROVIDERS: ATTEND Family Medicine
DX: M25.531 Pain in right wrist (principal)
CPT/HCPCS: 73110